=== PATIENT | male | born 1985 | race Caucasian/White ===

== ENCOUNTER 2019-12-28 10:39 | Inpatient (IN) | payer MEDICAID, OTHER ==
[~2019-12-28] VITALS: Ht 154.9 cm; Wt 68.1 kg
[2019-12-28] MEDS ORDERED: SODIUM CHLORIDE 0.9% 1,000 ML IVB ONE (10:55)
[2019-12-28] MEDS ORDERED: levoFLOXacin 500MG 100 ML IV ONE (11:00)
[2019-12-28] MEDS ORDERED: ETOMIDATE (2MG/ML) 20ML VIAL IV ONE ×2 (11:15→11:17)
[2019-12-28] MEDS ORDERED: SUCCINYLCHOLINE CHLORIDE 20 MG/ML 10ML VIAL IV ONE ×2 (11:15→11:18)
[2019-12-28] MEDS ORDERED: ROCURONIUM 10MG/ML 10ML VIAL IV ONE (11:17)
[2019-12-28 12:02] LABS: Basophils # (auto) 0.1 10 ^3/uL (0-0.2); Basophils % (auto) 0.3 % (0.0-2.0); Eosinophils # (auto) 0 10 ^3/uL (0-0.8); Eosinophils % (auto) 0.1 % (0.0-7.0); Hematocrit 45.4 % (41.0-53.0); Hemoglobin 14.8 g/dL (13.5-17.5); Lymphocytes % (auto) 4.7 % (10.0-50.0); Mean Corpuscular Hemoglobin 32.4 pg (28.0-32.0); Mean Corpuscular Hgb Conc. 32.7 g/dL (32.0-36.0); Monocytes # (auto) 2.1 10 ^3/uL (0-1.3); Monocytes % (auto) 9.6 % (0.0-12.0); Neutrophils # (auto) 18.4 10 ^3/uL (1.6-8.6); Neutrophils % (auto) 85.3 % (37.0-80.0); Platelet Count (auto) 231 10^3/uL (140-450); Red Blood Cells 4.59 10^6/uL (4.5-5.90); Red Cell Distribution Width 13.4 % (11.8-14.3); White Blood Cell 21.6 10^3/uL (4.4-10.8)
[2019-12-28 12:21] LABS: Albumin 3.3 g/dL (3.4-5.0); Calcium 10.5 mg/dL (8.5-10.1); Magnesium 3.7 mg/dL (1.6-2.6); Potassium 5.1 mmol/L (3.5-5.1)
[2019-12-28 12:24] LABS: BUN/Creatinine Ratio 14.9; Bilirubin, Total 0.3 mg/dL (0.2-1.0)
[2019-12-28 14:15] VITALS: BP 134/80
[2019-12-28] MEDS ORDERED: NITROGLYCERIN 0.4 MG SL TAB SL PRN (14:15)
[2019-12-28] MEDS ORDERED: MORPHINE SULF INJ 2 MG/ML SYRINGE 1ML IV PRN (14:15)
[2019-12-28] MEDS ORDERED: PIPERACILLIN-TAZOB 3.375GM 100 ML IV ONE (14:15)
[2019-12-28 14:18] VITALS: BP 108/69
[2019-12-28] MEDS: MIDAZOLAM DRIP 50 mg/50mL 50 ML IV SCH ×3 (14:48→22:43)
[2019-12-28] MEDS ORDERED: CHOL100029 PO (14:49)
[2019-12-28] MEDS ORDERED: MIDAZOLAM DRIP 50 mg/50mL 50 ML IV ONE (14:52)
[2019-12-28] MEDS ORDERED: OXCA300T26 PO (14:56)
[2019-12-28] MEDS ORDERED: KEP500T PO (14:56)
[2019-12-28 15:08] LABS: Lactate Dehydrogenase 257 U/L (87-241)
[2019-12-28 15:27] LABS: CRP High Sensitivity > 19.0 mg/dL (< 0.3)
[2019-12-28] MEDS: SODIUM CHLORIDE 0.9% 1,000 ML IV SCH (15:34)
[2019-12-28] MEDS ORDERED: ALBUTEROL SULF 2.5 MG/0.5ML(0.5%) NEB SOLN NEB PRN (15:45)
[2019-12-28] MEDS ORDERED: LACTULOSE 20Gm/30ML SOLN PO PRN (15:45)
[2019-12-28] MEDS: fentaNYL Drip 2500mCg/250mlNS 250 ML IV SCH (16:21)
[2019-12-28] MEDS ORDERED: fentaNYL Drip 2500mCg/250mlNS 250 ML IV ONE (16:31)
[2019-12-28] MEDS: methylPREDNISolone SOD SUCC 40 MG/ML VL IV SCH (17:48)
[2019-12-28] MEDS: FAMOTIDINE (10MG/ML) 2ML VL IV SCH (17:48)
[2019-12-28] MEDS: IPRATROPIUM BROM 0.5 MG/2.5ML INH SOL NEB SCH (17:57)
[2019-12-28] MEDS ORDERED: ACETAMINOPHEN 325 MG RECT SUPP PR ONE (17:57)
[2019-12-28] MEDS: ALBUTEROL SULF 2.5 MG/0.5ML(0.5%) NEB SOLN NEB SCH (17:57)
[2019-12-28] MEDS: NOREPINEPHRINE 8 MG/250ML KIT 250 ML IV SCH (18:00)
[2019-12-28] MEDS ORDERED: NOREPINEPHRINE 8 MG/250ML KIT 250 ML IV ONE (18:06)
[2019-12-28] MEDS ORDERED: HEPARIN SODIUM (PORCINE) 5000 UNITS/ML 1ML VIAL IV ONE (18:45)
[2019-12-28] MEDS ORDERED: ACETAMINOPHEN 650 mg PER 20 mL UD PO ONE (19:00)
[2019-12-28] MEDS: BUDESONIDE (INHALATION) 0.5 MG/2 ML NEB NEB SCH (19:03)
[2019-12-28 19:08] LABS: Hematocrit 40.7 % (41.0-53.0); Hemoglobin 13.4 g/dL (13.5-17.5); Mean Corpuscular Hemoglobin 32.5 pg (28.0-32.0); Mean Corpuscular Hgb Conc. 32.8 g/dL (32.0-36.0); Mean Corpuscular Volume 98.8 fL (80.0-100.0); Platelet Count (auto) 222 10^3/uL (140-450); Red Blood Cells 4.12 10^6/uL (4.5-5.90); Red Cell Distribution Width 13.5 % (11.8-14.3); White Blood Cell 17.6 10^3/uL (4.4-10.8)
[2019-12-28 19:09] LABS: Basophils % (manual) 0 (0.0-2.0); Blast Cells 0; Eosinophils % (manual) 0 (0-7); Myelocytes % 0; Promyelocytes % 0; Reactive Lymphocytes 0
[2019-12-28 19:15] LABS: INR 1.11 (0.9-1.15); Partial Thromboplastin Time 36.1 sec (23.64-32.05)
[2019-12-28 19:37] VITALS: BP 101/71
[2019-12-28 20:06] LABS: Band Neutrophils % (manual) 16; Lymphocytes % (manual) 4 (10.0-50.0); Metamyelocytes % 1; Monocytes % (manual) 9 (0-12)
[2019-12-28] MEDS: HEPARIN DRIP/D5W 100UNITS/ML 250 ML IV SCH (20:33)
[2019-12-28] MEDS: PIPERACILLIN-TAZOB 2.25GM 50 ML IV SCH (20:35)
[2019-12-28] MEDS: LINEZOLID 600MG/300ML 300 ML IV SCH ×2 (20:35→22:00)
[2019-12-28 21:59] VITALS: BP 98/62
[2019-12-28] MEDS ORDERED: BUDESONIDE (INHALATION) 180 MCG IH IN SCH (22:00)
[2019-12-28] MEDS ORDERED: levETIRAcetam 500 MG/5ML INJ IV ONE (22:23)
[2019-12-28] MEDS: OXcarbazepine 300 MG TAB PO SCH (22:26)
[2019-12-28 23:38] LABS: Urine Amorphous Crystal MOD /hpf (None Seen); Urine Bacteria MOD /hpf (None Seen); Urine Blood 2+ /uL (Negative); Urine Specific Gravity 1.012 (1.001-1.035); Urine WBC 115 /hpf (0 - 3); Urine WBC Clumps PRESENT /hpf (None Seen)
[2019-12-29] VITALS (12 sets, daily range): BP systolic 64–156; BP diastolic 55–92
[2019-12-29] MEDS: IPRATROPIUM BROM 0.5 MG/2.5ML INH SOL NEB SCH ×4 (00:21→19:03)
[2019-12-29] MEDS: BUDESONIDE (INHALATION) 0.5 MG/2 ML NEB NEB SCH ×2 (00:21→06:04)
[2019-12-29] MEDS: ALBUTEROL SULF 2.5 MG/0.5ML(0.5%) NEB SOLN NEB SCH ×3 (00:21→14:12)
[2019-12-29] MEDS: PIPERACILLIN-TAZOB 2.25GM 50 ML IV SCH ×4 (01:24→22:19)
[2019-12-29] MEDS: SODIUM CHLORIDE 0.9% 1,000 ML IV SCH ×3 (01:24→22:18)
[2019-12-29] MEDS: MIDAZOLAM DRIP 50 mg/50mL 50 ML IV SCH (02:39)
[2019-12-29 02:51] LABS: Basophils # (auto) 0 10 ^3/uL (0-0.2); Eosinophils # (auto) 0 10 ^3/uL (0-0.8); Hematocrit 37.9 % (41.0-53.0); Hemoglobin 12.4 g/dL (13.5-17.5); Lymphocytes # (auto) 0.7 10 ^3/uL (0.4-5.4); Lymphocytes % (auto) 3.6 % (10.0-50.0); Mean Corpuscular Hemoglobin 32.2 pg (28.0-32.0); Mean Corpuscular Hgb Conc. 32.6 g/dL (32.0-36.0); Mean Corpuscular Volume 98.6 fL (80.0-100.0); Monocytes # (auto) 0.5 10 ^3/uL (0-1.3); Monocytes % (auto) 2.7 % (0.0-12.0); Neutrophils # (auto) 18.9 10 ^3/uL (1.6-8.6); Neutrophils % (auto) 93.7 % (37.0-80.0); Platelet Count (auto) 206 10^3/uL (140-450); Red Blood Cells 3.84 10^6/uL (4.5-5.90); Red Cell Distribution Width 13.4 % (11.8-14.3); White Blood Cell 20.2 10^3/uL (4.4-10.8)
[2019-12-29 03:11] LABS: Albumin 2.4 g/dL (3.4-5.0); BUN/Creatinine Ratio 15.9; Calcium 8.5 mg/dL (8.5-10.1); Potassium 4.3 mmol/L (3.5-5.1)
[2019-12-29 03:14] LABS: Bilirubin, Total 0.3 mg/dL (0.2-1.0); Total Protein 6.5 g/dL (6.4-8.2)
[2019-12-29] MEDS: methylPREDNISolone SOD SUCC 40 MG/ML VL IV SCH ×2 (04:17→16:20)
[2019-12-29 04:59] LABS: INR 1.18 (0.9-1.15)
[2019-12-29 05:00] LABS: Partial Thromboplastin Time > 139.0 sec (23.64-32.05)
[2019-12-29] MEDS: HEPARIN DRIP/D5W 100UNITS/ML 250 ML IV SCH (07:38)
[2019-12-29] MEDS ORDERED: HEPARIN DRIP/D5W 100UNITS/ML 250 ML IV SCH (07:45)
[2019-12-29 09:37] LABS: INR 1.16 (0.9-1.15)
[2019-12-29 09:41] LABS: Partial Thromboplastin Time > 139.0 sec (23.64-32.05)
[2019-12-29] MEDS ORDERED: ASCORBIC ACID 1,000 MG TAB NG SCH (10:00)
[2019-12-29] MEDS ORDERED: CHOLECALCIFEROL (VITD3) 1,000UNIT=25mCg TAB PO SCH (10:00)
[2019-12-29] MEDS ORDERED: levoFLOXacin 500MG 100 ML IV ONE (10:00)
[2019-12-29] MEDS ORDERED: ZINC SULFATE 220mg CAP or TAB NG SCH (10:00)
[2019-12-29] MEDS ORDERED: ENOXAPARIN SOD 40 MG/0.4 ML SYRINGE SC SCH (10:00)
--- NOTE | 2019-12-29 11:16 | NUR ---
WOUND CARE NOTE: Wound care in to see patient per wound care request regarding "pressure wound Right Hip/Thigh area" that are noted present on admission. Patient is 34 years old male with admitting diagnosis of Acute Resp Failure. Patient is resting in hospital bed in ED Rm. #9. Patient is intubated,sedated and mechanically ventilated. Patient appears to be in no pain using Lujan Paulino Faces pain Scale. Patient has cerebral palsy, max assist in turning and repositioning and his Adalberto score is 12. Skin assessment done with the assistance of patient's nurse, OMEGA Jiménez. Noted patient's LRt lateral hip/thigh area has 9.5x14cm dark red/purple non-blanchable area. Patient's mother at bedside reported that patient has had the Rt hip/thigh wound "for about a year" as patient lean more toward his Rt side. Patient's Rt hip/thigh wound is consistent with DTI (Deep Tissue Injury). Photograph of patient's wound are taken for reference. Barbara care given, applied Z Guard cream and covered Rt hip/thigh wound with large Opti foam gentle dressing. Patient also noted with large, swollen scrotum. According to patient's mom, patient has "hydrocele since he's a child and always been like that". Patient tolerated well, repositioned patient for comfort facing his Lt side, redistributed pressure points with pillows and elevated BLE on pillows. OMEGA Jiménez at bedside. RECOMMENDATION: Nursing to continue with BID/PRN cleaning and application of Z Guard cream sacral, buttocks and Rt hip/thigh wound per MD order, Dietary consult, frequent turning and repositioning schedule as condition permits, redistribute pressure points with pillows, air mattress (ordered), frequent barbara care/check, keep clean and dry, elevate heels on pillows, continue monitoring by wound care while patient is hospitalized. Addendum: 12/29/19 at 1439 by Autumn Taveras RN Amended: Links added.
[2019-12-29] MEDS: LINEZOLID 600MG/300ML 300 ML IV SCH ×2 (11:37→22:20)
[2019-12-29] MEDS: OXcarbazepine 300 MG TAB PO SCH ×2 (11:37→22:00)
[2019-12-29] MEDS: DOPamine 1600MCG/ML D5W 250 ML IV SCH (12:26)
--- NOTE | 2019-12-29 13:00 | NUR ---
ICU LOW AIR LOW BED: Called marc for ICU low air loss bed. Per Yanique tran, she will bring one for patient. Addendum: 12/29/19 at 1802 by Autumn Taveras RN 1700 per marc Chanel,no available ICU low air loss bed
[2019-12-29] MEDS: FAMOTIDINE (10MG/ML) 2ML VL IV SCH (16:19)
[2019-12-29] MEDS: fentaNYL Drip 2500mCg/250mlNS 250 ML IV SCH (16:26)
[2019-12-29 16:45] LABS: Protein, Urine 36.5 mg/dL (0.0-11.9)
--- NOTE | 2019-12-29 17:36 | NUR ---
AIR MATTRESS: Air mattress ordered at [facility]. ETA 12/29/19 @ 2331. Reference #[id number]. Please call [facility] at if needed to follow up. Addendum: 12/29/19 at 1737 by Autumn Taveras RN Amended: Links added. Addendum: 12/30/19 at 0935 by Autumn Taveras RN [facility] Air mattress not delivered. Per Simba Chanel ICU Low Air Loss Bed is now available and she will bring one in ED for patient. [facility] bed cancelled.
[2019-12-29] MEDS: NOREPINEPHRINE 8 MG/250ML KIT 250 ML IV SCH (18:00)
--- NOTE | 2019-12-29 21:44 | NUR ---
Respiratory note: DECREASED RR TO 16 PER MD ORDER
[2019-12-29] MEDS: PANTOPRAZOLE 40 MG/10 ML VIAL INJ IV SCH (22:20)
[2019-12-30] VITALS (11 sets, daily range): BP systolic 109–161; BP diastolic 67–91
[2019-12-30] MEDS: ALBUTEROL SULF 2.5 MG/0.5ML(0.5%) NEB SOLN NEB SCH ×5 (00:57→18:10)
[2019-12-30] MEDS: IPRATROPIUM BROM 0.5 MG/2.5ML INH SOL NEB SCH ×5 (00:57→18:10)
[2019-12-30] MEDS: PIPERACILLIN-TAZOB 2.25GM 50 ML IV SCH ×3 (06:00→22:28)
[2019-12-30] MEDS: BUDESONIDE (INHALATION) 0.5 MG/2 ML NEB NEB SCH ×2 (06:09→22:00)
[2019-12-30 06:55] LABS: Albumin 2.4 g/dL (3.4-5.0); Calcium 8.6 mg/dL (8.5-10.1); Potassium 3.8 mmol/L (3.5-5.1)
[2019-12-30 06:58] LABS: BUN/Creatinine Ratio 23.9; Bilirubin, Total 0.2 mg/dL (0.2-1.0); Phosphorus 2.4 mg/dL (2.5-4.90); Total Protein 7.1 g/dL (6.4-8.2)
[2019-12-30] MEDS: SODIUM CHLORIDE 0.9% 1,000 ML IV SCH ×2 (08:06→17:34)
[2019-12-30] MEDS: PANTOPRAZOLE 40 MG/10 ML VIAL INJ IV SCH (09:57)
[2019-12-30] MEDS: OXcarbazepine 300 MG TAB PO SCH ×2 (09:59→21:57)
[2019-12-30] MEDS ORDERED: levoFLOXacin 250MG 50 ML IV SCH (10:00)
[2019-12-30] MEDS: MIDAZOLAM DRIP 50 mg/50mL 50 ML IV SCH ×4 (10:08→23:15)
[2019-12-30] MEDS: LINEZOLID 600MG/300ML 300 ML IV SCH ×2 (10:12→21:58)
[2019-12-30] MEDS: DOPamine 1600MCG/ML D5W 250 ML IV SCH ×2 (10:27→23:16)
[2019-12-30 11:02] LABS: Basophils # (auto) 0 10 ^3/uL (0-0.2); Basophils % (auto) 0.3 % (0.0-2.0); Eosinophils # (auto) 0 10 ^3/uL (0-0.8); Hematocrit 42.9 % (41.0-53.0); Hemoglobin 14.2 g/dL (13.5-17.5); Lymphocytes # (auto) 0.6 10 ^3/uL (0.4-5.4); Lymphocytes % (auto) 4.8 % (10.0-50.0); Mean Corpuscular Hemoglobin 32.4 pg (28.0-32.0); Mean Corpuscular Volume 98.2 fL (80.0-100.0); Monocytes # (auto) 1.3 10 ^3/uL (0-1.3); Monocytes % (auto) 10.1 % (0.0-12.0); Neutrophils # (auto) 10.9 10 ^3/uL (1.6-8.6); Neutrophils % (auto) 84.8 % (37.0-80.0); Platelet Count (auto) 202 10^3/uL (140-450); Red Blood Cells 4.37 10^6/uL (4.5-5.90); Red Cell Distribution Width 13.3 % (11.8-14.3); White Blood Cell 12.9 10^3/uL (4.4-10.8)
--- NOTE | 2019-12-30 15:34 | NUR ---
Consult Consider Osmolite 1.2 at 60 ml/hr if TF is considered for pt per MD approval Consider adding MVI + Vit C 500mg BID for wound healing Est energy needs 4491-2096 kcal (30-35 kcal/kg BW 59kg) Est protein needs 59-71g (1-1.2g/kg BW 59kg) Will reassess prn. Addendum: 12/30/19 at [address] Amended: Links added.
[2019-12-30] MEDS: fentaNYL Drip 2500mCg/250mlNS 250 ML IV SCH ×2 (16:21→21:17)
[2019-12-30] MEDS: NOREPINEPHRINE 8 MG/250ML KIT 250 ML IV SCH (17:24)
[2019-12-31] VITALS (44 sets, daily range): BP systolic 70–143; BP diastolic 40–85
[2019-12-31] MEDS: ALBUTEROL SULF 2.5 MG/0.5ML(0.5%) NEB SOLN NEB SCH ×4 (00:15→18:39)
[2019-12-31] MEDS: IPRATROPIUM BROM 0.5 MG/2.5ML INH SOL NEB SCH ×4 (00:15→18:39)
[2019-12-31] MEDS: SODIUM CHLORIDE 0.9% 1,000 ML IV SCH ×2 (03:35→15:45)
[2019-12-31] MEDS: MIDAZOLAM DRIP 50 mg/50mL 50 ML IV SCH ×2 (04:16→22:03)
[2019-12-31] MEDS: BUDESONIDE (INHALATION) 0.5 MG/2 ML NEB NEB SCH ×2 (05:46→18:40)
[2019-12-31] MEDS: PIPERACILLIN-TAZOB 2.25GM 50 ML IV SCH (06:16)
[2019-12-31] MEDS: OXcarbazepine 300 MG TAB PO SCH ×3 (06:16→22:01)
[2019-12-31 08:07] LABS: Basophils # (auto) 0.1 10 ^3/uL (0-0.2); Basophils % (auto) 0.4 % (0.0-2.0); Eosinophils # (auto) 0 10 ^3/uL (0-0.8); Eosinophils % (auto) 0.3 % (0.0-7.0); Hematocrit 41.8 % (41.0-53.0); Lymphocytes # (auto) 2.1 10 ^3/uL (0.4-5.4); Lymphocytes % (auto) 14.9 % (10.0-50.0); Mean Corpuscular Hemoglobin 32.4 pg (28.0-32.0); Mean Corpuscular Hgb Conc. 33.4 g/dL (32.0-36.0); Mean Corpuscular Volume 96.9 fL (80.0-100.0); Monocytes # (auto) 1.7 10 ^3/uL (0-1.3); Monocytes % (auto) 12.6 % (0.0-12.0); Neutrophils # (auto) 9.9 10 ^3/uL (1.6-8.6); Neutrophils % (auto) 71.8 % (37.0-80.0); Nucleated Red Blood Cells % 0.1 %; Platelet Count (auto) 202 10^3/uL (140-450); Red Blood Cells 4.31 10^6/uL (4.5-5.90); Red Cell Distribution Width 13.6 % (11.8-14.3); White Blood Cell 13.8 10^3/uL (4.4-10.8)
[2019-12-31 08:25] LABS: Calcium 8.4 mg/dL (8.5-10.1); Potassium 3.2 mmol/L (3.5-5.1)
[2019-12-31] MEDS: POTASSIUM CHL 20MEQ/100ML 100 ML IV SCH ×2 (09:30→12:15)
[2019-12-31] MEDS: ENOXAPARIN SOD 30 MG/0.3 ML SYRINGE SC SCH (10:00)
[2019-12-31] MEDS: LINEZOLID 600MG/300ML 300 ML IV SCH ×2 (10:00→22:00)
[2019-12-31] MEDS: PANTOPRAZOLE 40 MG/10 ML VIAL INJ IV SCH (10:00)
[2019-12-31 12:24] LABS: Free T3 2.08 pg/mL (2.3-4.2); Free T4 (Free Thyroxine) 0.67 ng/dL (0.89-1.76)
[2019-12-31] MEDS ORDERED: ACETAMINOPHEN 650 mg PER 20 mL UD ONE (12:24)
[2019-12-31] MEDS: PIPERACILLIN-TAZOB 3.375GM 100 ML IV SCH ×2 (12:30→18:00)
[2019-12-31] MEDS ORDERED: ACETAMINOPHEN 650 mg PER 20 mL UD GT PRN (12:30)
[2019-12-31] MEDS ORDERED: ACETAMINOPHEN 325 MG TAB PO ONE (12:45)
[2019-12-31] MEDS ORDERED: ACETAMINOPHEN 500 MG TAB PO ONE (12:46)
--- NOTE | 2019-12-31 15:20 | NUR ---
PT WAS TRANSPORTED TO BUS ESCORT BED 5 WITHOUT INCIDENT. PT ON CARDIAC AND BP MONITOR. OMEGA SUMMERS AND CORONA ESPINO AT BEDSIDE. PT TOLERATED WELL. ETT REMAINS TO SAME POSITION AND MARKING. WILL CONTINUE TO MONITOR PT.
--- NOTE | 2019-12-31 15:45 | NUR ---
recieved pt from ER to label designer holding area. intubated and sedated on versed gtt at 10mg/hr, fentanyl gtt 150mcg/ hr. Blanca 3mm, Et tube at 24 to inner lip.vent settings TV 400, rate 18, fio2 100%, PEEp at 5. sating 96%. lung sounds diminished to lower quadrants. Ng tube at 53. residual of 30mls. right buttocks drsg with underlying skin red and blanchable. small BM smear produced when turning. light brown/liquid. contractures to bilat hands d/t cerebral palsy. responds to touch.
[2019-12-31] MEDS ORDERED: PHENYLEPHRINE IV 250 ML IV ONE (16:53)
[2019-12-31] MEDS ORDERED: SODIUM CHLORIDE 0.9% 1,000 ML IV ONE (17:00)
[2019-12-31] MEDS: PHENYLEPHRINE IV 250 ML IV SCH (17:12)
--- NOTE | 2019-12-31 17:50 | NUR ---
FAMILY PT'S MOTHER HERE IN THE ICU WAITING ROOM. SPOKE WITH HER TO PROVIDE AN UPDATE ON THE PT'S CURRENT STATUS AND POC. SHE PROVIDED ME WITH HER NAME AND CONTACT INFORMATION AND I TOLD HER WE WILL CONTACT HER FOR ANY CHANGE IN HIS CONDITION.
[2019-12-31] MEDS ORDERED: ACETAMINOPHEN 325 MG TAB PO PRN (18:00)
--- NOTE | 2019-12-31 19:48 | NUR ---
shift report given to LOU RN. pt stable. remains vented and sedated. transfer services to LOU chicas
--- NOTE | 2019-12-31 19:55 | NUR ---
admission assessment unable to complete. pt vented and sedated. pt has been in ER since the 27 of December
--- NOTE | 2019-12-31 20:10 | NUR ---
Respiratory note: TRANSPORTED PT TO CT WITHOUT INCIDENT W/ OMEGA Rivera
--- NOTE | 2019-12-31 20:28 | NUR ---
Respiratory note: BACK FROM CT.
--- NOTE | 2019-12-31 20:32 | NUR ---
Respiratory note: VENT CHECK DONE AT THIS TIME. PLACED PT BACK ON PREVIOUS VENT SETTINGS. PT BACK ON VENT V15, VENT CONNECTED TO RED OUTLET AND O2 SOURCE, ALARMS ARE SET AND AUDIBLE. BS ARE COURSE SXD VIA ETT FOR SMALL TO MODERATE THICK FAJARDO/W BLOOD TINGE. RN AWARE RT CAN BE PAGED AT ANY TIME.
[2020-01-01] VITALS (106 sets, daily range): BP systolic 84–120; BP diastolic 48–87
--- NOTE | 2020-01-01 | NUR ---
Patient turned, pillows to back side, repositioned in bed, no signs of acute distress noted, continue to monitor.
[2020-01-01] MEDS: IPRATROPIUM BROM 0.5 MG/2.5ML INH SOL NEB SCH ×4 (00:23→18:55)
[2020-01-01] MEDS: ALBUTEROL SULF 2.5 MG/0.5ML(0.5%) NEB SOLN NEB SCH ×4 (00:23→18:55)
[2020-01-01] MEDS: SODIUM CHLORIDE 0.9% 1,000 ML IV SCH ×4 (00:36→20:53)
[2020-01-01] MEDS: PIPERACILLIN-TAZOB 3.375GM 100 ML IV SCH ×5 (00:37→23:48)
[2020-01-01] MEDS: PHENYLEPHRINE IV 250 ML IV SCH ×3 (01:37→17:44)
--- NOTE | 2020-01-01 03:30 | NUR ---
Labs collected and sent up to lab
[2020-01-01 04:21] LABS: Basophils # (auto) 0 10 ^3/uL (0-0.2); Basophils % (auto) 0.3 % (0.0-2.0); Eosinophils # (auto) 0.2 10 ^3/uL (0-0.8); Eosinophils % (auto) 1.9 % (0.0-7.0); Hemoglobin 12.5 g/dL (13.5-17.5); Lymphocytes # (auto) 1.8 10 ^3/uL (0.4-5.4); Lymphocytes % (auto) 18.7 % (10.0-50.0); Mean Corpuscular Hemoglobin 33.2 pg (28.0-32.0); Mean Corpuscular Hgb Conc. 33.9 g/dL (32.0-36.0); Mean Corpuscular Volume 97.9 fL (80.0-100.0); Monocytes # (auto) 1.4 10 ^3/uL (0-1.3); Monocytes % (auto) 14.3 % (0.0-12.0); Neutrophils # (auto) 6.2 10 ^3/uL (1.6-8.6); Neutrophils % (auto) 64.8 % (37.0-80.0); Nucleated Red Blood Cells % 0.1 %; Platelet Count (auto) 213 10^3/uL (140-450); Red Blood Cells 3.78 10^6/uL (4.5-5.90); Red Cell Distribution Width 13.6 % (11.8-14.3); White Blood Cell 9.6 10^3/uL (4.4-10.8)
[2020-01-01] MEDS: fentaNYL Drip 2500mCg/250mlNS 250 ML IV SCH ×2 (04:24→20:52)
[2020-01-01] MEDS: MIDAZOLAM DRIP 50 mg/50mL 50 ML IV SCH ×2 (04:26→17:18)
[2020-01-01 04:31] LABS: Calcium 7.9 mg/dL (8.5-10.1); Potassium 3.1 mmol/L (3.5-5.1)
[2020-01-01 04:34] LABS: BUN/Creatinine Ratio 18.5; Bilirubin, Total 0.5 mg/dL (0.2-1.0); Total Protein 5.8 g/dL (6.4-8.2)
--- NOTE | 2020-01-01 04:47 | NUR ---
STEPHANIE Kirk paged for potassium coverage of 3.1 this AM. Awaiting new orders
[2020-01-01] MEDS: OXcarbazepine 300 MG TAB PO SCH ×4 (06:02→21:58)
[2020-01-01] MEDS: BUDESONIDE (INHALATION) 0.5 MG/2 ML NEB NEB SCH ×2 (06:36→18:55)
--- NOTE | 2020-01-01 06:43 | NUR ---
Respiratory note: RECEIVED PATIENT ON V15 ESPRIT VENT ORALLY INTUBATED WITH A 7.5 ETT SECURED VIA KARRI AT THE 24CM MARKING AT THE LIP, AND MECHANICALLY VENTILATED WITH THE CHARTED SETTINGS. SPO2 90%, LUNG SOUNDS DIM T/O, SMALL AMOUNT OF FAJARDO SECRETIONS WHEN SUCTIONED. SKIN IS WARM/DRY TO THE TOUCH AND IS INTACT NEAR KARRI SITE. THERE IS AN OGT IN PLACE AND SECURED TO THE ETT, A TRIPLE LUMEN CENTRAL LINE IS PLACED IN THE RIGHT IJ, NO EDEMA NOTED. AM CXR ASSESSED AND IT SHOWS ETT IN SATISFACTORY POSITION SITTING APPROX 3.8CM ABOVE THE CALVIN; NO INDICATION TO ADJUST TUBE AT THIS TIME. PATIENT IS UNRESPONSIVE TO BOTH VERBAL/TACTILE STIMULI AND IS SEDATED ON VERSED AND FENTANYL DRIPS. HE IS RESTING COMFORTABLY AND TOLERATING VENT WELL, NO CHANGES MADE. VENT PLUGGED INTO RED OUTLET AND ALL ALARMS ARE SET AND AUDIBLE. WILL CONTINUE TO ASSESS PATIENT WELL VENTILATOR FUNCTION. Lala-BackType RUN INLINE.
--- NOTE | 2020-01-01 06:44 | NUR ---
New Order: Potassium 20MEQ IV infusion, one time order, order repeated back and confirmed.
[2020-01-01] MEDS ORDERED: POTASSIUM CHL 20MEQ/100ML 100 ML IV ONE (06:47)
--- NOTE | 2020-01-01 07:00 | NUR ---
Potassium infusion started, lined connected to Central line.
--- NOTE | 2020-01-01 07:10 | NUR ---
Closing note; Report given to Jonathon Heart RN, care endorsed.
--- NOTE | 2020-01-01 07:30 | NUR ---
Received pt from james rn. pt remains sedated and intubated. perrla sluggish. NG tube placement checked. responds to touch. vent settings ac ppep 5, tv 400, rate 18, fio2 85%. pt has cerrbral palsy. legs stiff/contracted. stomach round and firm, rigid to rlq. absent bowel sounds. ng residual of 30ml.
[2020-01-01] MEDS: PANTOPRAZOLE 40 MG/10 ML VIAL INJ IV SCH (10:29)
[2020-01-01] MEDS: ENOXAPARIN SOD 30 MG/0.3 ML SYRINGE SC SCH (11:00)
[2020-01-01] MEDS: LINEZOLID 600MG/300ML 300 ML IV SCH ×2 (11:02→21:54)
--- NOTE | 2020-01-01 12:35 | NUR ---
belinda santiago both called with new orders. updated them on status of patient
[2020-01-01] MEDS ORDERED: SODIUM CHLORIDE 0.9% 1,000 ML IV ONE (13:00)
[2020-01-01] MEDS: POTASSIUM CHL 20MEQ/100ML 100 ML IV SCH ×2 (13:45→16:04)
--- NOTE | 2020-01-01 14:56 | NUR ---
Nutrition Followup Notes Wt: 77.2 kg Pt`s intubated sedated with no family by beside. pt is currently NPO with no new diet orders Est energy needs 6805-5494 kcal (30-35 kcal/kg BW 59kg) Est protein needs 59-71g (1-1.2g/kg BW 59kg) Will reassess prn. LABS: CA 7.9 L, ALB 2.0 L GI: Pt has no BM reported per RN doc BS: 10 high risk. Refer to wound assessment report for full details. PES: Inadequate oral intake aeb pt with NPO diet order r/t current medical condition, intubated Comments Will continue to closely monitor pertinent labs, PO intake, skin status and weight trends. Will f/u in 2-3 days Rec: 1) Consider Osmolite 1.2 @ 60 ml/hr if TF is considered for pt and GI is accessible. 2) Consider adding MVI and Vit C BID for wound healing. 3) advance diet as medically feasible. 4) consider prostat 1 packet bid. 5) continue current plan of care
--- NOTE | 2020-01-01 15:30 | NUR ---
SHIFT REPORT GIVEN TO ONCOMING RN
[2020-01-01] MEDS ORDERED: FLEET ENEMA(ADULT) 135 ML PR ONE ×2 (15:39→15:45)
--- NOTE | 2020-01-01 16:13 | NUR ---
Respiratory note: PEEP INCREASED TO [address] ZULETA'S BEDSIDE ORDER. RN JOPHY AT BEDSIDE AND AWARE OF CHANGE.
--- NOTE | 2020-01-01 16:15 | NUR ---
FLEET ENEMA FLEET ENEMA GIVEN. NO BOWEL MOVEMENTS.
--- NOTE | 2020-01-01 18:15 | NUR ---
SOAP CARL ENEMA GIVEN.
--- NOTE | 2020-01-01 22:15 | NUR ---
Special mattress/ Patient bathe/linen change Patient given complete bath. Skin integrity assessed for any changes. Linens changed. Patient transferred to [facility]
[2020-01-02] VITALS (105 sets, daily range): BP systolic 76–134; BP diastolic 49–98
--- NOTE | 2020-01-02 | NUR ---
IV removal LT.FA IV DC'd with sterile technique, catheter fully intact. Pressure dressing applied to site. Patient tolerated procedure well.
[2020-01-02] MEDS: ALBUTEROL SULF 2.5 MG/0.5ML(0.5%) NEB SOLN NEB SCH ×4 (00:27→18:16)
[2020-01-02] MEDS: IPRATROPIUM BROM 0.5 MG/2.5ML INH SOL NEB SCH ×4 (00:27→18:16)
[2020-01-02] MEDS: MIDAZOLAM DRIP 50 mg/50mL 50 ML IV SCH ×5 (02:03→23:01)
[2020-01-02] MEDS: PHENYLEPHRINE IV 250 ML IV SCH ×4 (02:17→20:54)
[2020-01-02] MEDS: SODIUM CHLORIDE 0.9% 1,000 ML IV SCH ×2 (03:17→13:39)
[2020-01-02] MEDS: PIPERACILLIN-TAZOB 3.375GM 100 ML IV SCH ×3 (05:32→17:43)
[2020-01-02] MEDS: OXcarbazepine 300 MG TAB PO SCH ×4 (05:36→23:20)
[2020-01-02 06:09] LABS: Basophils # (auto) 0.1 10 ^3/uL (0-0.2); Basophils % (auto) 0.6 % (0.0-2.0); Eosinophils # (auto) 0.3 10 ^3/uL (0-0.8); Eosinophils % (auto) 2.3 % (0.0-7.0); Hematocrit 39.2 % (41.0-53.0); Hemoglobin 12.8 g/dL (13.5-17.5); Lymphocytes # (auto) 1.7 10 ^3/uL (0.4-5.4); Lymphocytes % (auto) 12.5 % (10.0-50.0); Mean Corpuscular Hemoglobin 32.2 pg (28.0-32.0); Mean Corpuscular Hgb Conc. 32.6 g/dL (32.0-36.0); Mean Corpuscular Volume 98.8 fL (80.0-100.0); Monocytes # (auto) 1.3 10 ^3/uL (0-1.3); Monocytes % (auto) 9.3 % (0.0-12.0); Neutrophils # (auto) 10.2 10 ^3/uL (1.6-8.6); Neutrophils % (auto) 75.3 % (37.0-80.0); Nucleated Red Blood Cells % 0.1 %; Platelet Count (auto) 227 10^3/uL (140-450); Red Blood Cells 3.96 10^6/uL (4.5-5.90); Red Cell Distribution Width 14.1 % (11.8-14.3); White Blood Cell 13.6 10^3/uL (4.4-10.8)
[2020-01-02] MEDS: BUDESONIDE (INHALATION) 0.5 MG/2 ML NEB NEB SCH ×2 (06:12→18:16)
[2020-01-02 06:28] LABS: Calcium 7.9 mg/dL (8.5-10.1); Potassium 3.6 mmol/L (3.5-5.1)
[2020-01-02 06:30] LABS: BUN/Creatinine Ratio 10.5
[2020-01-02] MEDS ORDERED: ACETAMINOPHEN 650 mg PER 20 mL UD ONE (08:03)
[2020-01-02] MEDS: ACETAMINOPHEN 650 mg PER 20 mL UD GT PRN (08:15)
[2020-01-02] MEDS: LINEZOLID 600MG/300ML 300 ML IV SCH (10:20)
[2020-01-02] MEDS: ENOXAPARIN SOD 30 MG/0.3 ML SYRINGE SC SCH (10:38)
[2020-01-02] MEDS: PANTOPRAZOLE 40 MG/10 ML VIAL INJ IV SCH (10:38)
--- NOTE | 2020-01-02 12:34 | NUR ---
REPORT GIVEN TO FREDERICK. PLAN TO TRANSFER TO 102 IN ICU. MOTHER CALLED ABOUT THE TRANSFER. UPDATED ON CONDITION
--- NOTE | 2020-01-02 12:40 | NUR ---
DR. ZULETA AT BEDSIDE, UPDATED ON PT STATUS. NEW ORDERS RECEIVED. INCREASED PEEP +12. PT TOLERATING CHANGES, SPO2 91%. NOTIFIED RN OF CHANGES.
--- NOTE | 2020-01-02 12:41 | NUR ---
DR. ZULETA IN. UPDATED ON CONDITION. ORDERS REC'D.
--- NOTE | 2020-01-02 12:45 | NUR ---
TRANSFERRED TO 102 WITH RT X2.
--- NOTE | 2020-01-02 12:50 | NUR ---
RT Transport Note: Patient transported to ICU 102 with RN. Patient transported on still operator with alarms set and audible, ambu-bag/mask connected to O2 tank. Placed pt back on ventilator with previous settings. Transport completed without incident.
--- NOTE | 2020-01-02 12:55 | NUR ---
Opening Shift Note Assumed care of patient, intubated and sedated. No S/S of distress/SOB or pain. See interventions for complete assessment. Bed locked on low position,padded side rails up x2, bed alarms on at all times, will continue to monitor for changes Q1hr and PRN.
[2020-01-02] MEDS ORDERED: GOLYTELY 4L KIT PO ONE (13:00)
[2020-01-02] MEDS: fentaNYL Drip 2500mCg/250mlNS 250 ML IV SCH (13:16)
--- NOTE | 2020-01-02 14:10 | NUR ---
Titrated FIO2 down to 90%, SPO2 93%. Notified RN of changes.
--- NOTE | 2020-01-02 14:52 | NUR ---
Awaiting Gordon Stallworth from Pharmacy, spoke to Regine.
--- NOTE | 2020-01-02 16:00 | NUR ---
Received call from patient's mother Monica who's able to provide password. Updated on patient's status and POC, verbalized understanding. All questions and concerns addressed.
--- NOTE | 2020-01-02 16:34 | NUR ---
Followed - up Go litely from pharmacy, spoke to Regine.
--- NOTE | 2020-01-02 17:00 | NUR ---
Patient given 200ml Go litely via OGT, patient tolerated well.
--- NOTE | 2020-01-02 18:16 | NUR ---
RT NOTE RECEIVED PT INTUBATED AND ON VENT V15 ON STATED SETTINGS WITH HEATED WIRE CIRCUIT. VENT IS PLUGGED TO RED OUTLET. ALARMS ARE ON AND AUDIBLE TO NURSING. AMBU BAG AT BEDSIDE AND CONNECTED TO O2 SOURCE. 7.5 ETT IS SECURED WITH ANCHORFAST WITH BITE BLOCK AT 24CM TO THE ORAL RIGHT AND MOVED TO THE LEFT. PT WAS SUCTIONED FOR SMALL RETURN FROM ETT AND LARGE ORALLY. BS ARE CTA. FIO2 TITRATED TO 85%, RN VICTORIA NOTIFIED. CIRCUIT TEMP 34.0, POX 96%
--- NOTE | 2020-01-02 18:28 | NUR ---
RT NOTE MEDNEB GIVEN INLINE WITH 2.5 ,G ALBUTEROL, 0.5 MG ATROVENT AND 0.5 MG PULMICORT WITHOUT ADVERSE REACTION NOTED.
--- NOTE | 2020-01-02 18:35 | NUR ---
KUB xray done at bedside.
--- NOTE | 2020-01-02 18:40 | NUR ---
Gave another 200 ml Go litely via OGT, patient tolerated well.
--- NOTE | 2020-01-02 18:45 | NUR ---
Dr Hankins at bedside, updated on patient's status. Patient seen and examined. Will carry out new orders.
--- NOTE | 2020-01-02 20:02 | NUR ---
PEG TUBE PEG TUBE INSERTION SITE - REDNESS NOTED SITE CLEANED
--- NOTE | 2020-01-02 20:02 | NUR ---
RT NOTE ROUTINE VENT CHECK DONE. PT INTUBATED AND ON VENT V15 ON STATED SETTINGS WITH HEATED WIRE CIRCUIT. VENT IS PLUGGED TO RED OUTLET. ALARMS ARE ON AND AUDIBLE TO NURSING. AMBU BAG AT BEDSIDE AND CONNECTED TO O2 SOURCE. 7.5 ETT IS SECURED WITH ANCHORFAST WITH BITE BLOCK AT 24CM TO THE LEFT. PT IS GETTING CLEANED UP BY RN. CIRCUIT TEMP 34.0, POX 93% Addendum: 01/02/20 at 2021 by Coral San RT Amended: Links added.
--- NOTE | 2020-01-02 20:10 | NUR ---
GOLYTELY NOT GIVEN REMAINING GOLYTELY NOT GIVEN ASPIRATED 120MLS FROM OGT AND ABDOMEN DISTENDED PATIENT JUST HAD BM MODERATE AMOUNT LOOSE BROWNISH STOOL
--- NOTE | 2020-01-02 22:06 | NUR ---
RT NOTE ROUTINE VENT CHECK DONE. PT INTUBATED AND ON VENT V15 ON STATED SETTINGS WITH HEATED WIRE CIRCUIT. VENT IS PLUGGED TO RED OUTLET. ALARMS ARE ON AND AUDIBLE TO NURSING. AMBU BAG AT BEDSIDE AND CONNECTED TO O2 SOURCE. 7.5 ETT IS SECURED WITH ANCHORFAST WITH BITE BLOCK AT 24CM TO THE LEFT. FOI2 TITRATED TO 80%. OMEGA KESSLER NOTIFIED. CIRCUIT TEMP 34.0, POX 95% Addendum: 01/02/20 at 2209 by Coral San RT Amended: Links added.
[2020-01-02] MEDS: CEFEPIME 2 GM in SODIUM CHL 0.9% 50 ML IV SCH (23:14)
[2020-01-03] VITALS (100 sets, daily range): BP systolic 77–123; BP diastolic 33–76
--- NOTE | 2020-01-03 | NUR ---
RT NOTE ROUTINE VENT CHECK DONE. PT INTUBATED AND ON VENT V15 ON STATED SETTINGS WITH HEATED WIRE CIRCUIT. VENT IS PLUGGED TO RED OUTLET. ALARMS ARE ON AND AUDIBLE TO NURSING. AMBU BAG AT BEDSIDE AND CONNECTED TO O2 SOURCE. 7.5 ETT IS SECURED WITH ANCHORFAST WITH BITE BLOCK AT 24CM TO THE LEFT. FI02 TITRATED TO 70%. OMEGA KESSLER NOTIFIED. PT WAS SUCTIONED FOR SCANT RETURN. HHN GIVEN INLINE WITH 2.5 MG ALBUTEROL AND 0.5 MG ATROVENT WITHOUT ADVERSE REACTION NOTED. CIRCUIT TEMP 34.0 WATER LEVEL IS ADEQUATE, POX 95% Addendum: 01/03/20 at 0035 by Coral San RT Amended: Links added.
[2020-01-03] MEDS: IPRATROPIUM BROM 0.5 MG/2.5ML INH SOL NEB SCH ×4 (00:25→19:28)
[2020-01-03] MEDS: ALBUTEROL SULF 2.5 MG/0.5ML(0.5%) NEB SOLN NEB SCH ×4 (00:25→19:28)
--- NOTE | 2020-01-03 01:20 | NUR ---
ELIMINATION PATIENT HAD LARGE AMOUNT OF LOOSE BROWNISH STOOL CLEANED PATIENT. PARTIAL LINEN CHANGE DONE Z GUARD CREAM APPLIED ON PERIANAL AREA OPTIFOAM ON RIGHT HIP CHANGED BECAUSE ITS SOILED WITH STOOL
--- NOTE | 2020-01-03 01:57 | NUR ---
RT NOTE ROUTINE VENT CHECK DONE. PT INTUBATED AND ON VENT V15 ON STATED SETTINGS WITH HEATED WIRE CIRCUIT. VENT IS PLUGGED TO RED OUTLET. ALARMS ARE ON AND AUDIBLE TO NURSING. AMBU BAG AT BEDSIDE AND CONNECTED TO O2 SOURCE. 7.5 ETT IS SECURED WITH ANCHORFAST WITH BITE BLOCK AT 24CM TO THE LEFT. FI02 TITRATED TO 80%. OMEGA KESSLER NOTIFIED. PT WAS SUCTIONED FOR SCANT RETURN. CIRCUIT TEMP 34.0 WATER LEVEL IS ADEQUATE, POX 91% Addendum: 01/03/20 at 0213 by Coral San RT Amended: Links added.
[2020-01-03] MEDS: SODIUM CHLORIDE 0.9% 1,000 ML IV SCH (03:30)
[2020-01-03] MEDS: PHENYLEPHRINE IV 250 ML IV SCH ×5 (03:30→22:37)
[2020-01-03] MEDS: fentaNYL Drip 2500mCg/250mlNS 250 ML IV SCH ×2 (03:35→14:21)
--- NOTE | 2020-01-03 03:59 | NUR ---
RT NOTE ROUTINE VENT CHECK DONE. PT INTUBATED AND ON VENT V15 ON STATED SETTINGS WITH HEATED WIRE CIRCUIT. VENT IS PLUGGED TO RED OUTLET. ALARMS ARE ON AND AUDIBLE TO NURSING. AMBU BAG AT BEDSIDE AND CONNECTED TO O2 SOURCE. 7.5 ETT IS SECURED WITH ANCHORFAST WITH BITE BLOCK AT 24CM TO THE LEFT. FI02 TITRATED TO 90%. OMEGA KESSLER NOTIFIED. PT WAS SUCTIONED FOR SCANT RETURN. CIRCUIT TEMP 34.1 WATER LEVEL IS ADEQUATE, POX 91% Addendum: 01/03/20 at 0409 by Coral San RT Amended: Links added.
--- NOTE | 2020-01-03 04:18 | NUR ---
DESATURATION PATIENT EASILY DESATS TO LOW 85% WHEN AWAKE OR STIMULATED SEDATION INCREASED - SEE IV SPREADSHEET RT INCREASED FIO2 TO 90%
[2020-01-03 04:38] LABS: Basophils # (auto) 0.1 10 ^3/uL (0-0.2); Basophils % (auto) 0.9 % (0.0-2.0); Eosinophils # (auto) 0.5 10 ^3/uL (0-0.8); Eosinophils % (auto) 4.1 % (0.0-7.0); Hematocrit 39.4 % (41.0-53.0); Hemoglobin 12.6 g/dL (13.5-17.5); Lymphocytes # (auto) 1.5 10 ^3/uL (0.4-5.4); Lymphocytes % (auto) 13.4 % (10.0-50.0); Mean Corpuscular Hemoglobin 31.8 pg (28.0-32.0); Mean Corpuscular Hgb Conc. 32.1 g/dL (32.0-36.0); Mean Corpuscular Volume 98.9 fL (80.0-100.0); Monocytes # (auto) 1.4 10 ^3/uL (0-1.3); Monocytes % (auto) 11.9 % (0.0-12.0); Neutrophils # (auto) 8.1 10 ^3/uL (1.6-8.6); Neutrophils % (auto) 69.7 % (37.0-80.0); Platelet Count (auto) 253 10^3/uL (140-450); Red Blood Cells 3.98 10^6/uL (4.5-5.90); Red Cell Distribution Width 14.3 % (11.8-14.3); White Blood Cell 11.5 10^3/uL (4.4-10.8)
[2020-01-03] MEDS: MIDAZOLAM DRIP 50 mg/50mL 50 ML IV SCH ×4 (04:38→22:40)
[2020-01-03 05:00] LABS: BUN/Creatinine Ratio 10.9; Potassium 3.1 mmol/L (3.5-5.1)
--- NOTE | 2020-01-03 05:59 | NUR ---
OZ NIÑO PATIENT'S POTASSIUM 3.1 MMOL OZ NIÑO LEFT VOICEMAIL FOR DR. GIBSON
[2020-01-03] MEDS: BUDESONIDE (INHALATION) 0.5 MG/2 ML NEB NEB SCH ×2 (06:18→19:29)
--- NOTE | 2020-01-03 07:10 | NUR ---
REPORT REPORT GIVEN TO OMEGA MONDRAGON
[2020-01-03] MEDS: OXcarbazepine 300 MG TAB PO SCH ×5 (07:22→22:43)
[2020-01-03] MEDS: PANTOPRAZOLE 40 MG/10 ML VIAL INJ IV SCH (08:19)
[2020-01-03] MEDS: ENOXAPARIN SOD 30 MG/0.3 ML SYRINGE SC SCH (08:19)
[2020-01-03] MEDS: levoFLOXacin 500MG 100 ML IV SCH (08:20)
--- NOTE | 2020-01-03 09:53 | NUR ---
assessment Patient is a 34 year old male who is on a vent. Per patients mother Monica patient has cerebral palsey, and mental retardation. Patients PCP is Dr Robb and his specialist are at [facility]. Patient has a wheelchair, home oxygen at 2L/min, nebulizer, suction, hospital bed and shaw and a shower chair. Monica is patients primary caregiver. Patients sister Molly also provides caregiving when needed. I informed Monica that patients post discharge needs to be determined after extubation and prior to discharge. I will continue to monitor and follow up as appropriate. Monica verbalized understanding. Addendum: 01/03/20 at 0958 by Abimbola CONTRERAS Amended: Links added.
--- NOTE | 2020-01-03 09:55 | NUR ---
Family updated on pt status Family of ALYSSAGA updated on patient's status and condition. All questions and concerns addressed. Mother, Monica verbalized understanding.
--- NOTE | 2020-01-03 10:00 | NUR ---
Md at bedside Police Liaison updated on patients status. New orders in place.
--- NOTE | 2020-01-03 10:00 | NUR ---
Elimination Patient had a moderate, brown, loose stool. Skin cleansed. Zguard applied. Patient repositioned to side to off load pressure. Will continue to reposition at least every 2 hrs.
[2020-01-03] MEDS ORDERED: BUMETANIDE 2.5mg/10ml (0.25 mg/ml) INJ IV ONE (10:45)
[2020-01-03] MEDS: CEFEPIME 2 GM in SODIUM CHL 0.9% 50 ML IV SCH ×2 (11:05→22:00)
[2020-01-03] MEDS: POTASSIUM CHL 20MEQ/100ML 100 ML IV SCH ×3 (11:14→14:59)
--- NOTE | 2020-01-03 12:30 | NUR ---
ELIMINATION PATIENT HAD A MODERATE, BROWN LOOSE STOOL. SKIN CLEANSED. ZGAURD APPLIED PREVENATIVE. OPTIFOAM TO RIGHT HIP CDI. PATIENT TURNED TO OFF LOAD PRESSURE FROM SACRUM WITH MULTIPLE PILLOWS. HEELS AND ELBOWS ALSO OFFLOADED.
--- NOTE | 2020-01-03 14:52 | NUR ---
Nutrition Followup Notes Wt: 86.6 kg Pt`s intubated sedated with no family by beside. pt is currently NPO since 12/30 with a PEG Tube, no new diet orders. Suggest EN nutrition support be initiated. Refer to recommendations noted below under Comments. Est energy needs 0337-7187 kcal (30-35 kcal/kg BW 59kg) Est protein needs 59-71g (1-1.2g/kg BW 59kg) Will reassess prn. LABS: CA 8.0 L, ALB 2.0 L GI: Pt had 2 BM on 01/02 per RN doc BS: 10 high risk. Refer to wound assessment report for full details. PES: Inadequate oral intake aeb pt with NPO diet order r/t current medical condition, intubated Comments Will continue to closely monitor pertinent labs, PO intake, skin status and weight trends. Will f/u in 2-3 days Rec: 1) Consider Osmolite 1.2 @ 60 ml/hr if TF is considered for pt and GI is accessible. 2) Consider adding MVI and Vit C BID for wound healing. 3) advance diet as medically feasible. 4) consider prostat 1 packet bid. 5) continue current plan of care
--- NOTE | 2020-01-03 15:19 | NUR ---
Gtube site Tissue surrounding G tube site noted to be moist, pink with some creamy discharge. Site cleansed with chlorahexadine swab and 4x4 gauze placed surrounding site. Md to be notified.
--- NOTE | 2020-01-03 16:53 | NUR ---
MD AT BEDSIDE DR. Yehuda AVILEZ UPDATED ON PATIENTS STATUS. NEW ORDERS IN PLACE TO CANCEL UROLOGY CONSULT AT THIS TIME DUE TO PERTINENT HX. FEEDINGS TO POSSIBLY BE RESTARTED IN A.M. PER MD CULTURE OF G TUBE SITE AT THIS TIME. SEE MD ORDERS.
--- NOTE | 2020-01-03 17:35 | NUR ---
HYPOTENSION, TACHYPNEA COMPLETE BED LINEN CHANGED SEROUS FLUID IS NOTED TO LEAK FROM BILATERAL EDEMATOUS TESTICLES AND PATIENT HAD A SMALL LIQUID BROWN STOOL. POST BED CHANGE PATIENTS RR NOTED UNSYNCHRONIZED WITH VENTILATOR PATIENT WAS "STACKING" BREATHS AND RR NOTED MID 30'S. BP DECREASED TO 83/47. PRESSOR INCREASED. SEDATION INCREASED FOR SYNCHRONY OF VENT. WILL CONTINUE TO MONITOR.
--- NOTE | 2020-01-03 18:39 | NUR ---
Family updated on pt status Family of GA SHAH updated on patient's status and condition. All questions and concerns addressed. Monica Hutchison verbalized understanding.
[2020-01-03] MEDS: ACETAMINOPHEN 650 mg PER 20 mL UD GT PRN (20:22)
[2020-01-04] VITALS (100 sets, daily range): BP systolic 78–123; BP diastolic 40–88
[2020-01-04] MEDS: IPRATROPIUM BROM 0.5 MG/2.5ML INH SOL NEB SCH ×4 (00:17→18:24)
[2020-01-04] MEDS: ALBUTEROL SULF 2.5 MG/0.5ML(0.5%) NEB SOLN NEB SCH ×4 (00:17→18:24)
[2020-01-04] MEDS: fentaNYL Drip 2500mCg/250mlNS 250 ML IV SCH (01:16)
[2020-01-04] MEDS: PHENYLEPHRINE IV 250 ML IV SCH ×2 (01:18→04:44)
[2020-01-04] MEDS: MIDAZOLAM DRIP 50 mg/50mL 50 ML IV SCH ×2 (01:20→12:08)
[2020-01-04 04:40] LABS: Basophils # (auto) 0.1 10 ^3/uL (0-0.2); Basophils % (auto) 0.8 % (0.0-2.0); Eosinophils # (auto) 0.5 10 ^3/uL (0-0.8); Eosinophils % (auto) 4.6 % (0.0-7.0); Hematocrit 35.2 % (41.0-53.0); Hemoglobin 11.5 g/dL (13.5-17.5); Lymphocytes # (auto) 1.6 10 ^3/uL (0.4-5.4); Lymphocytes % (auto) 15.2 % (10.0-50.0); Mean Corpuscular Hemoglobin 32.1 pg (28.0-32.0); Mean Corpuscular Hgb Conc. 32.6 g/dL (32.0-36.0); Mean Corpuscular Volume 98.4 fL (80.0-100.0); Monocytes # (auto) 1.6 10 ^3/uL (0-1.3); Neutrophils # (auto) 6.7 10 ^3/uL (1.6-8.6); Neutrophils % (auto) 64.4 % (37.0-80.0); Nucleated Red Blood Cells % 0.1 %; Platelet Count (auto) 307 10^3/uL (140-450); Red Blood Cells 3.57 10^6/uL (4.5-5.90); Red Cell Distribution Width 13.7 % (11.8-14.3); White Blood Cell 10.4 10^3/uL (4.4-10.8)
[2020-01-04 04:59] LABS: Calcium 8.3 mg/dL (8.5-10.1); Potassium 3.7 mmol/L (3.5-5.1)
[2020-01-04 05:01] LABS: BUN/Creatinine Ratio 9.6
[2020-01-04] MEDS: OXcarbazepine 300 MG TAB PO SCH ×4 (05:35→22:29)
[2020-01-04] MEDS: BUDESONIDE (INHALATION) 0.5 MG/2 ML NEB NEB SCH ×2 (05:58→18:24)
--- NOTE | 2020-01-04 07:30 | NUR ---
INITIAL ASSESSMENT COMPLETED. SEE FLOW SHEET FOR DATA.
[2020-01-04] MEDS: levoFLOXacin 500MG 100 ML IV SCH (08:49)
[2020-01-04] MEDS: PANTOPRAZOLE 40 MG/10 ML VIAL INJ IV SCH (09:28)
[2020-01-04] MEDS: ENOXAPARIN SOD 30 MG/0.3 ML SYRINGE SC SCH (09:28)
[2020-01-04] MEDS: CEFEPIME 2 GM in SODIUM CHL 0.9% 50 ML IV SCH ×2 (09:36→22:28)
[2020-01-04] MEDS ORDERED: BUMETANIDE 2.5mg/10ml (0.25 mg/ml) INJ IV SCH (10:00)
--- NOTE | 2020-01-04 10:15 | NUR ---
FAMILY UPDATED OF PT STATUS.
--- NOTE | 2020-01-04 12:10 | NUR ---
Respiratory note: ROUTINE VENT CHECK DONE. TITRATED FIO2 TO 60%. PT'S BREATH SOUNDS ARE COARSE, SUCTION MODERATE YELLOW CLER SECRETION FROM ETT AND ORALLY. PT RECEIVED [place] INLINE. NO ADVERSE REACTION NOTED. RN AT BEDSIDE.
--- NOTE | 2020-01-04 17:00 | NUR ---
INITIAL CONTACT REPORT RECEIVED FROM LOREN DUFF, CARE ASSUMED. PT OBSERVED RESTING IN BED. EYES OPENING SPONTANEOUSLY. NO DISTRESS NOTED. PT DOES NOT TRACK OR FOLLOW COMMANDS. SEDATION OF VERSED AND FENTANYL IN USE. PUPILS ARE EQUAL AND REACTIVE TO LIGHT. PULSES PALPATION RADIAL AND PEDAL BILATERALLY. LUNGS CLEAR ANTERIORLY, TOLERATING VENTILATION WELL AT THIS TIME. OXYGEN SATURATION 95%. LING CATHETER PRESENT, PATENT, AND SECURED BELOW BLADDER. PT ON SPECIALTY AIR MATTRESS. ALL EXTREMITIES OFF LOADED ON PILLOWS. SEE SKIN/WOUND ASSESSMENT. ALARMS IN PLACE. RIGHT IJ TLC, DRESSING CDI. BED LOCKED IN LOWEST POSITION. WILL CONTINUE TO MONITOR.
--- NOTE | 2020-01-04 17:23 | NUR ---
CARES PARTIAL LINEN CHANGE COMPLETE. BELEM CARE COMPLETE. PT REPOSITIONED ON SIDE. VS REMAINING STABLE. WILL CONTINUE TO MONITOR.
--- NOTE | 2020-01-04 18:10 | NUR ---
MD VISIT ROUNDING. NEW ORDERS OBTAINED.
[2020-01-04] MEDS ORDERED: Osmolite 1.2 Cal One Liter GT SCH (18:15)
--- NOTE | 2020-01-04 19:18 | NUR ---
REPORT REPORT GIVEN TO LUIS DUFF, CARE ENDORSED.
--- NOTE | 2020-01-04 20:00 | NUR ---
RECIEVED PT INTUBATED AND LIGHTLY SEDATED, EYES OPEN DIFFICULT TO DETERMINE IF PT IS TRACKING, PT NOTED TO HAVE TREMORS WHEN STIMULATED, PT WITH HX OF CP, ARMS AND HANDS ARE CONTRACTED,LEFT MORE RIGID, FEET ARE DEFORMED, ABD DISTENDED AND FIRM, GENERALIZED EDEMA WELL SCROTOL EDEMA, SEE INTERVENTIONS FOR FURTHER ASSESSMENT, DRIPS AND VITAL SIGNS, DR. Yehuda GILL CALLED AND INFORMED THIS NURSE THAT THE WAS SPOKEN TO REGARDING A TERMINAL WEAN TOMARROW Addendum: 01/05/20 at 0247 by Zena Flores RN DR. Yehuda GILL SPOKE WITH MOTHER, NOT
--- NOTE | 2020-01-04 20:15 | NUR ---
FAMILY CALL PATIENT'S MOTHER CALLED CRYING AND REQUESTED UPDATE ABOUT PATIENT WELL INQUIRING ABOUT TERMINAL WEAN SHE HAD DISCUSSED WITH MD. THIS NURSE GAVE HER AN UPDATE ON THE PATIENT'S CONDITION AFTER SHE VERIFIED CORRECT PASSWORD. INFORMED HER THAT THE NEXT OF KIN, SHE HAS THE RIGHT TO MAKE THE DECISION ABOUT THE TERMINAL WEAN AND ENCOURAGED HER TO DISCUSS ALL OPTIONS WITH MD PRIOR TO MAKING HER FINAL DECISION. ALL QUESTIONS AND CONCERNS ADDRESSED. SHE VERBALIZED UNDERSTANDING.
[2020-01-04] MEDS: LACTULOSE 20Gm/30ML SOLN PO SCH (22:36)
[2020-01-04] MEDS: BUMETANIDE 1mg/4ml VIAL (0.25mg/ml) IV SCH (22:36)
[2020-01-04] MEDS ORDERED: levETIRAcetam 500 MG/5ML INJ IV ONE (23:00)
[2020-01-05] VITALS (101 sets, daily range): BP systolic 81–141; BP diastolic 38–98
[2020-01-05] MEDS: IPRATROPIUM BROM 0.5 MG/2.5ML INH SOL NEB SCH ×4 (00:06→18:26)
[2020-01-05] MEDS: ALBUTEROL SULF 2.5 MG/0.5ML(0.5%) NEB SOLN NEB SCH ×4 (00:06→18:26)
--- NOTE | 2020-01-05 01:30 | NUR ---
COMPLETE BATH AND NAYELI CHANGE, Z GUARD APPLIED TO EXCORIATED AREAS, NO STOOL
[2020-01-05 04:35] LABS: Basophils # (auto) 0.1 10 ^3/uL (0-0.2); Basophils % (auto) 0.6 % (0.0-2.0); Eosinophils # (auto) 0.5 10 ^3/uL (0-0.8); Eosinophils % (auto) 5.1 % (0.0-7.0); Hematocrit 36.2 % (41.0-53.0); Lymphocytes # (auto) 1.7 10 ^3/uL (0.4-5.4); Lymphocytes % (auto) 17.2 % (10.0-50.0); Mean Corpuscular Hemoglobin 32.3 pg (28.0-32.0); Mean Corpuscular Hgb Conc. 33.3 g/dL (32.0-36.0); Mean Corpuscular Volume 97.1 fL (80.0-100.0); Monocytes # (auto) 1.4 10 ^3/uL (0-1.3); Monocytes % (auto) 13.9 % (0.0-12.0); Neutrophils # (auto) 6.3 10 ^3/uL (1.6-8.6); Neutrophils % (auto) 63.2 % (37.0-80.0); Platelet Count (auto) 343 10^3/uL (140-450); Red Blood Cells 3.73 10^6/uL (4.5-5.90); Red Cell Distribution Width 13.6 % (11.8-14.3)
[2020-01-05 04:55] LABS: BUN/Creatinine Ratio 6.3; Calcium 8.8 mg/dL (8.5-10.1); Potassium 3.6 mmol/L (3.5-5.1)
[2020-01-05] MEDS: PHENYLEPHRINE IV 250 ML IV SCH ×3 (05:20→22:00)
[2020-01-05] MEDS: BUMETANIDE 1mg/4ml VIAL (0.25mg/ml) IV SCH ×3 (06:00→22:00)
[2020-01-05] MEDS ORDERED: levETIRAcetam 500 MG/5ML INJ IV ONE (06:04)
[2020-01-05] MEDS: OXcarbazepine 300 MG TAB PO SCH ×4 (06:11→22:00)
[2020-01-05] MEDS: BUDESONIDE (INHALATION) 0.5 MG/2 ML NEB NEB SCH ×2 (06:26→18:26)
--- NOTE | 2020-01-05 08:42 | NUR ---
Family Called Mother called for update, password verified. Notified on patient's status and condition. Worried and crying, stated concern for terminal wean as spoken with Dr. Camara yesterday. Mother do not wish to proceed with terminal wean at this time. Mother states she is going to communicate for updates throughout the day. All questions answered.
[2020-01-05] MEDS: LACTULOSE 20Gm/30ML SOLN PO SCH ×2 (08:59→22:00)
[2020-01-05] MEDS: ENOXAPARIN SOD 30 MG/0.3 ML SYRINGE SC SCH (08:59)
[2020-01-05] MEDS: PANTOPRAZOLE 40 MG/10 ML VIAL INJ IV SCH (08:59)
[2020-01-05] MEDS: levoFLOXacin 500MG 100 ML IV SCH (08:59)
[2020-01-05] MEDS: CEFEPIME 2 GM in SODIUM CHL 0.9% 50 ML IV SCH ×2 (09:57→22:39)
--- NOTE | 2020-01-05 10:09 | NUR ---
Nutrition Followup Notes Wt: 83.0 kg Pt`s intubated sedated with no family by beside. pt is currently NPO with no new diet orders Est energy needs 0057-6858 kcal (30-35 kcal/kg BW 59kg) , Est protein needs 59-71g (1-1.2g/kg BW 59kg) . Will reassess prn. LABS: All otehr labs wnl ALB 2.0 L GI: Pt had 2 BM on 01/02 per RN doc BS: 9 high risk. Refer to wound assessment report for full details. PES: Inadequate oral intake aeb pt with NPO diet order r/t current medical condition, intubated Comments Will continue to closely monitor pertinent labs, PO intake, skin status and weight trends. Will f/u in 2-3 days Rec: 1) Consider Osmolite 1.2 @ 60 ml/hr if TF is considered for pt and GI is accessible. 2) Consider adding MVI and Vit C BID for wound healing. 3) advance diet as medically feasible. 4) consider prostat 1 packet bid. 5) continue current plan of care
[2020-01-05] MEDS: MIDAZOLAM DRIP 50 mg/50mL 50 ML IV SCH (11:00)
[2020-01-05] MEDS ORDERED: POTASSIUM CHL 20MEQ/100ML 200 ML IV ONE (13:43)
[2020-01-05] MEDS: POTASSIUM CHL 20MEQ/100ML 100 ML IV SCH ×2 (13:59→15:45)
--- NOTE | 2020-01-05 16:52 | NUR ---
Mother on the Phone Updated on patient's status. All questions answered. Petitioning to be notified right at CPAP trial/Extubation process starts. States she does not wish for her son to be re-intubated if he fails CPAP/extubation trial. Dr. Little and RT Flores notified, aware of wishes. Per Dr. Little to hold off feedings until extubation process is completed.
--- NOTE | 2020-01-05 16:55 | NUR ---
CPAP TRIAL INITIATED PER DR ZULETA PS 7, PEEP5. PT FAILED CPAP DUE TO APNEA. PT PLACED BACK ON PREVIOUS SETTINGS. MD ZULETA CHANGED PEEP TO 10.
[2020-01-05] MEDS: fentaNYL Drip 2500mCg/250mlNS 250 ML IV SCH (18:30)
[2020-01-05] MEDS: DexMEDEtomidine 400 MCG in D5W 5% 96 ML IV SCH (19:00)
[2020-01-06] VITALS (106 sets, daily range): BP systolic 87–125; BP diastolic 47–81
[2020-01-06] MEDS: PHENYLEPHRINE IV 250 ML IV SCH ×3 (02:00→16:00)
[2020-01-06] MEDS ORDERED: SODIUM BICARBONATE 50ML VIAL 100 ML in D5W/SOD CHL 0.45% 1,000 ML IV SCH (02:30)
[2020-01-06] MEDS ORDERED: SODIUM BICARBONATE 8.4 % INJ 50ML VIAL IV ONE (02:30)
--- NOTE | 2020-01-06 05:00 | NUR ---
k level 2.8 this am, obtained order for replacement from hospitalist.
[2020-01-06 05:13] LABS: Calcium 8.7 mg/dL (8.5-10.1)
[2020-01-06 05:16] LABS: BUN/Creatinine Ratio 4.9
[2020-01-06 05:19] LABS: Potassium 2.8 mmol/L (3.5-5.1)
[2020-01-06] MEDS: POTASSIUM CHL 20MEQ/100ML 100 ML IV SCH ×3 (06:00→14:08)
[2020-01-06] MEDS: OXcarbazepine 300 MG TAB PO SCH ×4 (06:00→22:00)
[2020-01-06] MEDS: BUMETANIDE 1mg/4ml VIAL (0.25mg/ml) IV SCH ×3 (06:00→22:00)
[2020-01-06] MEDS: IPRATROPIUM BROM 0.5 MG/2.5ML INH SOL NEB SCH ×4 (06:52→18:41)
[2020-01-06] MEDS: ALBUTEROL SULF 2.5 MG/0.5ML(0.5%) NEB SOLN NEB SCH ×4 (06:52→18:41)
[2020-01-06] MEDS: BUDESONIDE (INHALATION) 0.5 MG/2 ML NEB NEB SCH ×2 (06:52→18:41)
--- NOTE | 2020-01-06 08:21 | NUR ---
Mother On the Phone Updated on patient's status and POC. Requesting to be notified once patient is ready for CPAP trial as she would like to be near by the hospital during the extubation process.
[2020-01-06] MEDS: LACTULOSE 20Gm/30ML SOLN PO SCH ×2 (09:36→22:00)
[2020-01-06] MEDS: ENOXAPARIN SOD 30 MG/0.3 ML SYRINGE SC SCH (09:36)
[2020-01-06] MEDS ORDERED: POTASSIUM EFFERVESENT TAB 25 MEQ GT ONE (09:45)
[2020-01-06] MEDS: DOPamine 1600MCG/ML D5W 250 ML IV SCH (10:00)
[2020-01-06] MEDS: PANTOPRAZOLE 40 MG/10 ML VIAL INJ IV SCH (10:23)
[2020-01-06] MEDS ORDERED: MEROPENEM 1GM IVPB 0 ML IV ONE (10:47)
[2020-01-06] MEDS: levoFLOXacin 500MG 100 ML IV SCH (11:00)
[2020-01-06] MEDS: CEFEPIME 2 GM in SODIUM CHL 0.9% 50 ML IV SCH ×2 (12:00→22:18)
[2020-01-06 13:10] LABS: Magnesium 1.8 mg/dL (1.6-2.6); Potassium 4.1 mmol/L (3.5-5.1)
[2020-01-06] MEDS ORDERED: MAGNESIUM SULFATE 1GM/100ML 100 ML IV ONE (14:15)
--- NOTE | 2020-01-06 14:26 | NUR ---
Mother on the Phone Updated on patient's status and POC.
--- NOTE | 2020-01-06 15:10 | NUR ---
Provider at Bedside Dr. New at bedside for evaluation. Updated on patient's status. No orders received at this time. Will continue to monitor closely.
--- NOTE | 2020-01-06 15:35 | NUR ---
Neurology Dr. Hankins at bedside for evaluation. States patient has poor prognosis. No orders received.
[2020-01-06] MEDS: MIDAZOLAM DRIP 50 mg/50mL 50 ML IV SCH (16:00)
--- NOTE | 2020-01-06 16:13 | NUR ---
CPAP TRIAL NOT DONE TODAY, DUE TO PT. DESATURATION. FI02 INCREASED FROM 50% TO 70%. SP02 90-91%.
[2020-01-06] MEDS: fentaNYL Drip 2500mCg/250mlNS 250 ML IV SCH (16:21)
[2020-01-06] MEDS: acetaZOLAMIDE SODIUM 500 MG VL IV SCH (22:00)
[2020-01-06] MEDS: POTASSIUM EFFERVESENT TAB 25 MEQ GT SCH (22:16)
[2020-01-07] VITALS (95 sets, daily range): BP systolic 86–139; BP diastolic 32–96
[2020-01-07] MEDS: IPRATROPIUM BROM 0.5 MG/2.5ML INH SOL NEB SCH ×5 (00:18→23:53)
[2020-01-07] MEDS: ALBUTEROL SULF 2.5 MG/0.5ML(0.5%) NEB SOLN NEB SCH ×5 (00:18→23:53)
[2020-01-07 04:37] LABS: Albumin 1.8 g/dL (3.4-5.0); Calcium 9.2 mg/dL (8.5-10.1)
[2020-01-07 04:42] LABS: BUN/Creatinine Ratio 10.4; Bilirubin, Total 0.2 mg/dL (0.2-1.0); Total Protein 6.9 g/dL (6.4-8.2)
[2020-01-07] MEDS: BUMETANIDE 1mg/4ml VIAL (0.25mg/ml) IV SCH ×3 (05:26→22:00)
[2020-01-07] MEDS: OXcarbazepine 300 MG TAB PO SCH ×4 (05:26→22:40)
[2020-01-07] MEDS: PHENYLEPHRINE IV 250 ML IV SCH ×2 (05:30→15:40)
[2020-01-07] MEDS: BUDESONIDE (INHALATION) 0.5 MG/2 ML NEB NEB SCH ×2 (06:10→18:18)
--- NOTE | 2020-01-07 06:21 | NUR ---
Respiratory note: RECEIVED PATIENT ON V15 ESPRIT VENT ORALLY INTUBATED WITH A 7.5 ETT SECURED VIA KARRI AT THE 25CM MARKING, AND MECHANICALLY VENTILATED WITH THE CHARTED SETTINGS. SPO2 93%, LUNG SOUNDS DIM T/O, MODERATE AMOUNT OF THICK FAJARDO SECRETIONS WHEN SUCTIONED. SKIN IS WARM/DRY TO THE TOUCH AND IS INTACT NEAR KARRI SITE. THERE IS AN OGT IN PLACE AND SECURED TO THE ETT, A TRIPLE LUMEN CENTRAL LINE IS PLACED IN THE RIGHT IJ. UPPER EXTREMITIES ARE CONTRACTED, WELL FEET. NO NEW CXR TO ASSESS. PATIENT IS UNRESPONSIVE TO BOTH VERBAL/TACTILE STIMULI AND IS SEDATED ON FENTANYL, VERSED, AND PRECEDEX DRIPS. HE IS RESTING COMFORTABLY AND TOLERATING VENT WELL, NO CHANGES MADE. VENT PLUGGED INTO RED OUTLET AND ALL ALARMS ARE SET AND AUDIBLE. WILL CONTINUE TO ASSESS PATIENT WELL VENTILATOR FUNCTION. [employer] RUN INLINE.
--- NOTE | 2020-01-07 07:30 | NUR ---
OPENING Report received from Randi BLAKE RN. Care initiated and initial assessment complete.
[2020-01-07] MEDS: levoFLOXacin 500MG 100 ML IV SCH (09:00)
[2020-01-07] MEDS: acetaZOLAMIDE SODIUM 500 MG VL IV SCH ×2 (10:00→22:00)
[2020-01-07] MEDS: CEFEPIME 2 GM in SODIUM CHL 0.9% 50 ML IV SCH ×2 (10:00→22:39)
[2020-01-07] MEDS: DexMEDEtomidine 400 MCG in D5W 5% 96 ML IV SCH ×2 (10:11→16:31)
[2020-01-07] MEDS: DOPamine 1600MCG/ML D5W 250 ML IV SCH (10:11)
[2020-01-07] MEDS: PANTOPRAZOLE 40 MG/10 ML VIAL INJ IV SCH (10:12)
[2020-01-07] MEDS: ENOXAPARIN SOD 30 MG/0.3 ML SYRINGE SC SCH (10:12)
[2020-01-07] MEDS: LACTULOSE 20Gm/30ML SOLN PO SCH ×2 (10:12→22:00)
[2020-01-07] MEDS: POTASSIUM EFFERVESENT TAB 25 MEQ GT SCH ×2 (10:12→22:00)
[2020-01-07 10:43] LABS: Hemoglobin 12.6 g/dL (13.5-17.5); Mean Corpuscular Hemoglobin 31.8 pg (28.0-32.0); Mean Corpuscular Hgb Conc. 33.2 g/dL (32.0-36.0); Mean Corpuscular Volume 95.6 fL (80.0-100.0); Platelet Count (auto) 312 10^3/uL (140-450); Red Blood Cells 3.97 10^6/uL (4.5-5.90); Red Cell Distribution Width 13.2 % (11.8-14.3); White Blood Cell 10.8 10^3/uL (4.4-10.8)
[2020-01-07 10:48] LABS: Basophils % (manual) 0 (0.0-2.0); Blast Cells 0; Metamyelocytes % 0; Promyelocytes % 0; Reactive Lymphocytes 0
--- NOTE | 2020-01-07 11:50 | NUR ---
WOUND CARE NOTE: IN TO SEE PATIENT AT THIS TIME FOR SKIN INTEGRITY MONITORING. PATIENT CONTINUES TO BE INTUBATED, NON RESPONSIVE. HE IS RESTING ON SPECIALTY AIR MATTRESS. PATIENT'S WOUND TO THE RIGHT HIP HAS EVOLVED FROM AN INTACT DTI TO PARTIAL THICKNESS OPEN AREAS IN MULTIPLE AREAS WITHIN THE 11 X 14 CM WOUND. ERYTHEMA HAS LESSENED, AREAS THAT WERE PURPLE ARE OPEN. MILD INDURATON NOTED. APPLIED THERAHONEY, OPTIFOAM GENTLE DRESSING TO WOUND. INTRAGLUTEAL, PERINEAL, SCROTAL SKIN IS RED WITH INTERTRIGO. PATIENT WOULD BENEFIT FROM ANTIFUNGAL CLEAR OINTMENT. PATIENT REPOSITIONED ONTO RIGHT SIDE, REDISTRIBUTING PRESSURE POINTS, WITH PILLOWS. RECOMMEND: EOD DRESSING CHANGE WITH THERAHONEY, OPTIFOAM GENTLE DRESSING TO RIGHT HIP, ANTIFUNGAL CLEAR OINTMENT TO REDDENED SKIN OF INTRAGLUTEAL FOLD BID/PRN, D/C ZGUARD; CONTINUATION WITH ALL OTHER WOUND CARE ORDERS PREVIOUSLY PRESCRIBED BY MD. WOUND CARE TEAM WILL CONTINUE TO MONITOR. Addendum: 01/07/20 at 1458 by Danae Segovia RN Amended: Links added.
[2020-01-07 12:26] LABS: Band Neutrophils % (manual) 11; Eosinophils % (manual) 1 (0-7); Lymphocytes % (manual) 21 (10.0-50.0); Monocytes % (manual) 6 (0-12); Myelocytes % 1
--- NOTE | 2020-01-07 14:05 | NUR ---
Respiratory note: FIO2 DECREASED TO 75% AT THIS TIME. OMEGA CRUZ MADE AWARE OF CHANGE.
--- NOTE | 2020-01-07 14:31 | NUR ---
Nutrition Followup Notes Wt: 83.0 kg as recorded on 01/04 Pt`s intubated sedated with no family by beside. pt is currently NPO since 12/31 with no new diet orders. Noted pt failed weaning trial this am per MD doc. Will continue to monitor PO status, skin status, pertinent labs and weight trends. Will f/u in 2-3 days. Est energy needs 6362-8824 kcal (30-35 kcal/kg BW 59kg) , Est protein needs 59-71g (1-1.2g/kg BW 59kg) . Will reassess prn. LABS: ALB 1.8 L, All other labs wnl GI: Pt had 3 BM on 01/02 per RN doc BS: 10 high risk. Refer to wound assessment report for full details. PES: Inadequate oral intake aeb pt with NPO diet order r/t current medical condition, intubated Comments Will continue to closely monitor pertinent labs, PO intake, skin status and weight trends. Will f/u in 2-3 days Rec: 1) Consider Osmolite 1.2 @ 60 ml/hr if TF is considered for pt and GI is accessible. 2) Consider adding MVI and Vit C BID for wound healing. 3) advance diet as medically feasible. 4) consider prostat 1 packet bid. 5) continue current plan of care
[2020-01-07] MEDS: MIDAZOLAM DRIP 50 mg/50mL 50 ML IV SCH (14:46)
[2020-01-07] MEDS: fentaNYL Drip 2500mCg/250mlNS 250 ML IV SCH (16:21)
[2020-01-07 18:04] LABS: Basophils # (auto) 0.1 10 ^3/uL (0-0.2); Eosinophils # (auto) 0.5 10 ^3/uL (0-0.8); Eosinophils % (auto) 3.6 % (0.0-7.0); Hematocrit 40.3 % (41.0-53.0); Hemoglobin 13.4 g/dL (13.5-17.5); Lymphocytes # (auto) 2.7 10 ^3/uL (0.4-5.4); Lymphocytes % (auto) 20.9 % (10.0-50.0); Mean Corpuscular Hemoglobin 32.4 pg (28.0-32.0); Mean Corpuscular Hgb Conc. 33.3 g/dL (32.0-36.0); Mean Corpuscular Volume 97.1 fL (80.0-100.0); Monocytes % (auto) 7.7 % (0.0-12.0); Neutrophils # (auto) 8.6 10 ^3/uL (1.6-8.6); Neutrophils % (auto) 66.8 % (37.0-80.0); Nucleated Red Blood Cells % 0.1 %; Platelet Count (auto) 323 10^3/uL (140-450); Red Blood Cells 4.15 10^6/uL (4.5-5.90); Red Cell Distribution Width 13.5 % (11.8-14.3); White Blood Cell 12.9 10^3/uL (4.4-10.8)
[2020-01-07 18:28] LABS: Albumin 1.9 g/dL (3.4-5.0); Anion Gap 8 (5-15); Bilirubin, Direct < 0.1 mg/dL (0-0.2); Blood Urea Nitrogen 7 mg/dL (7-18); Calcium 9.3 mg/dL (8.5-10.1); Carbon Dioxide 30 mmol/L (21-32); Chloride 95 mmol/L (98-107); Glucose 145 mg/dL (74-106); Magnesium 2.2 mg/dL (1.6-2.6); Potassium 3.3 mmol/L (3.5-5.1); Sodium 133 mmol/L (136-145)
[2020-01-07 18:31] LABS: Alanine Aminotransferase 18 U/L (16-61); Alkaline Phosphatase 63 U/L (45-117); Aspartate Aminotransferase 22 U/L (15-37); BUN/Creatinine Ratio 10.3; Bilirubin, Total 0.2 mg/dL (0.2-1.0); GFR African American 172 mL/min; GFR Non-African American 142 mL/min; Total Protein 7.1 g/dL (6.4-8.2)
[2020-01-07 19:26] LABS: INR 1.72 (0.9-1.15); Partial Thromboplastin Time 42.1 sec (23.64-32.05)
[2020-01-08] VITALS (82 sets, daily range): BP systolic 82–145; BP diastolic 41–88
[2020-01-08] MEDS: PHENYLEPHRINE IV 250 ML IV SCH ×3 (00:15→16:40)
[2020-01-08 04:22] LABS: Mean Corpuscular Hemoglobin 32.7 pg (28.0-32.0); Mean Corpuscular Hgb Conc. 33.4 g/dL (32.0-36.0); Platelet Count (auto) 315 10^3/uL (140-450); Red Blood Cells 3.98 10^6/uL (4.5-5.90); Red Cell Distribution Width 13.6 % (11.8-14.3); White Blood Cell 12.1 10^3/uL (4.4-10.8)
[2020-01-08 04:42] LABS: INR 1.72 (0.9-1.15); Partial Thromboplastin Time 33.9 sec (23.64-32.05)
[2020-01-08 04:44] LABS: Potassium 3.4 mmol/L (3.5-5.1)
[2020-01-08 04:52] LABS: Albumin 1.9 g/dL (3.4-5.0); BUN/Creatinine Ratio 14.5; Bilirubin, Direct 0.1 mg/dL (0-0.2); Bilirubin, Total 0.2 mg/dL (0.2-1.0); Calcium 8.9 mg/dL (8.5-10.1); Magnesium 2.2 mg/dL (1.6-2.6)
[2020-01-08 04:54] LABS: Basophils % (manual) 0 (0.0-2.0); Blast Cells 0; Promyelocytes % 0; Reactive Lymphocytes 0
[2020-01-08] MEDS: BUMETANIDE 1mg/4ml VIAL (0.25mg/ml) IV SCH ×3 (05:01→22:07)
[2020-01-08] MEDS: OXcarbazepine 300 MG TAB PO SCH ×4 (05:02→22:28)
[2020-01-08 05:14] LABS: Band Neutrophils % (manual) 1; Eosinophils % (manual) 5 (0-7); Lymphocytes % (manual) 22 (10.0-50.0); Metamyelocytes % 1; Monocytes % (manual) 4 (0-12); Myelocytes % 2
[2020-01-08] MEDS: DOPamine 1600MCG/ML D5W 250 ML IV SCH (05:14)
[2020-01-08] MEDS: IPRATROPIUM BROM 0.5 MG/2.5ML INH SOL NEB SCH ×4 (06:39→23:54)
[2020-01-08] MEDS: ALBUTEROL SULF 2.5 MG/0.5ML(0.5%) NEB SOLN NEB SCH ×4 (06:40→23:54)
--- NOTE | 2020-01-08 07:20 | NUR ---
OPENING NOTE RECEIVED REPORT FROM QUALITY ASSURANCE COACH RN. PT IS INTUBATED AND SEDATED. NO S/S OF DISTRESS NOTED. SEIZURE PRECAUTIONS PLACED FOR HX OF SEIZURES. BED IS LOCKED AT LOWEST POSITION, SIDE RAILS ARE UP. WILL CONTINUE TO MONITOR. Signed: 01/08/20 at 1541 by TAMIE KRAMER SN <Co-Signature Required> Co-Signed: 01/08/20 at 1541 by Ana Lilia Gil RN
--- NOTE | 2020-01-08 07:30 | NUR ---
INITIAL ASSESSMENT COPLETED. SEE FLOW SHEET FOR DATA.
--- NOTE | 2020-01-08 07:35 | NUR ---
DR MONTERO AT BEDSIDE DISCUSSED PT STATUS AND POC. Signed: 01/08/20 at 1541 by TAMIE KRAMER SN <Co-Signature Required> Co-Signed: 01/08/20 at 1541 by Ana Lilia Gil RN
[2020-01-08] MEDS: levoFLOXacin 500MG 100 ML IV SCH (08:51)
--- NOTE | 2020-01-08 09:00 | NUR ---
BRIAN (MOTHER) OTP PW VERIFIED. UPDATED PT STATUS AND POC, ALL QUESTIONS ANSWERED. PT REQUESTS TO SPEAK TO WILL INFORM DR AVILEZ OF PTS MOTHERS REQUEST. Signed: 01/08/20 at 1542 by TAMIE KRAMER <Co-Signature Required> Co-Signed: 01/08/20 at 1542 by Ana Lilia Gil RN
[2020-01-08] MEDS: POTASSIUM EFFERVESENT TAB 25 MEQ GT SCH ×2 (09:30→22:26)
[2020-01-08] MEDS: CEFEPIME 2 GM in SODIUM CHL 0.9% 50 ML IV SCH ×2 (09:32→22:28)
[2020-01-08] MEDS: ENOXAPARIN SOD 30 MG/0.3 ML SYRINGE SC SCH (09:33)
[2020-01-08] MEDS: PANTOPRAZOLE 40 MG/10 ML VIAL INJ IV SCH (09:33)
[2020-01-08] MEDS: LACTULOSE 20Gm/30ML SOLN PO SCH ×2 (09:33→22:09)
--- NOTE | 2020-01-08 09:40 | NUR ---
CARDIOLOGY ONEAL AGRICULTURAL ENGINEER AT BEDSIDE. DISCUSSED POC AND PT STATUS. Signed: 01/08/20 at 1542 by TAMIE KRAMER <Co-Signature Required> Co-Signed: 01/08/20 at 1542 by Ana Lilia Gil RN
[2020-01-08] MEDS: BUDESONIDE (INHALATION) 0.5 MG/2 ML NEB NEB SCH ×2 (11:03→21:54)
[2020-01-08] MEDS: acetaZOLAMIDE SODIUM 500 MG VL IV SCH ×2 (12:02→22:27)
--- NOTE | 2020-01-08 12:50 | NUR ---
Respiratory note: FI02 DECREASED TO 65%. PT TOLERATING WELL.
[2020-01-08] MEDS: fentaNYL Drip 2500mCg/250mlNS 250 ML IV SCH (13:23)
--- NOTE | 2020-01-08 13:55 | NUR ---
DR AVILEZ AT BEDSIDE DISCUSSED PT STATUS AND POC. INFORMED OF MOTHERS REQUEST TO SPEAK TO A DOCTOR. STATED HE WILL CALL HER. Signed: 01/08/20 at 1543 by TAMIE KRAMER <Co-Signature Required> Co-Signed: 01/08/20 at 1543 by Ana Lilia Gil RN
--- NOTE | 2020-01-08 15:00 | NUR ---
Family updated on pt status Family of [facility] updated on patient's status and condition. All questions and concerns addressed. Mother verbalized understanding.
[2020-01-08] MEDS: DexMEDEtomidine 400 MCG in D5W 5% 96 ML IV SCH (16:31)
[2020-01-08] MEDS: MIDAZOLAM DRIP 50 mg/50mL 50 ML IV SCH (18:00)
--- NOTE | 2020-01-08 18:47 | NUR ---
RT NOTE RECEIVED PT INTUBATED AND ON VENT V15 ON STATED SETTINGS. VENT IS PLUGGED TO RED OUTLET. ALARMS ARE ON AND AUDIBLE TO NURSING. AMBU BAG AT BEDSIDE AND CONNECTED TO O2. 7.5 ETT IS SECURED WITH ANCHORFAST WITH BITE BLOCK AT 25 CM AT THE TEETH AT THE ORAL RIGHT. BS ARE CTA. PT SUCTIONED FOR SMALL RETURN. HHN GIVEN INLINE WITH 2.5 MG ALBUTEROL AND 0.5 MG ATROVENT WITHOUT ADVERSE REACTION NOTED. CONT ORDERED. POX 94% Addendum: 01/08/20 at 1853 by Coral San RT Amended: Links added.
--- NOTE | 2020-01-08 20:00 | NUR ---
RECIEVED PT AWAKE VENTILATED AND ON VERSED 5MG/HR AND FENTANYL 100MCG/KG/MIN, AFEBRILE, STACH 100, SEE INTERVENTIONS FOR HEAD TO TOE ASSESSMENT AND VITAL SIGNS
--- NOTE | 2020-01-08 20:10 | NUR ---
RT NOTE ROUTINE VENT CHECK DONE. PT INTUBATED AND ON VENT V15 ON STATED SETTINGS. VENT IS PLUGGED TO RED OUTLET. ALARMS ARE ON AND AUDIBLE TO NURSING. AMBU BAG AT BEDSIDE AND CONNECTED TO O2. 7.5 ETT IS SECURED WITH ANCHORFAST WITH BITE BLOCK AT 25 CM AT THE TEETH AT THE ORAL RIGHT. OMEGA SMITH AT BEDSIDE CARING FOR PT. WATER LEVEL IS ADEQUATE. CONT ORDERED.CIRCUIT TEMP 34.2, POX 95% Addendum: 01/08/20 at 2036 by Coral San RT Amended: Links added.
--- NOTE | 2020-01-08 20:30 | NUR ---
SPOKE WITH PT MOTHER BRIAN, UPDATE GIVEN AND QUESTIONS ANSWERED
--- NOTE | 2020-01-08 21:54 | NUR ---
RT NOTE ROUTINE VENT CHECK DONE. PT INTUBATED AND ON VENT V15 ON STATED SETTINGS. VENT IS PLUGGED TO RED OUTLET. ALARMS ARE ON AND AUDIBLE TO NURSING. AMBU BAG AT BEDSIDE AND CONNECTED TO O2. 7.5 ETT IS SECURED WITH ANCHORFAST WITH BITE BLOCK AT 25 CM AT THE TEETH AT THE ORAL LEFT. BS ARE CLEAR/DIM. HHN GIVEN INLINE WITH 0.5 MG PULMICORT WITHOUT ADVERSE REACTION NOTED. PT WAS SUCTIONED FOR SMALL RETURN FROM ETT AND LARGE RETURN ORALLY. WATER LEVEL IS ADEQUATE. CONT ORDERED.CIRCUIT TEMP 34.0, POX 96% Addendum: 01/08/20 at 2304 by Coral San RT Amended: Links added.
--- NOTE | 2020-01-08 23:49 | NUR ---
RT NOTE ROUTINE VENT CHECK DONE. PT INTUBATED AND ON VENT V15 ON STATED SETTINGS. VENT IS PLUGGED TO RED OUTLET. ALARMS ARE ON AND AUDIBLE TO NURSING. AMBU BAG AT BEDSIDE AND CONNECTED TO O2. 7.5 ETT IS SECURED WITH ANCHORFAST WITH BITE BLOCK AT 25 CM AT THE TEETH AT THE ORAL LEFT. BS ARE CLEAR/DIM. HHN GIVEN INLINE WITH 2.5 MG ALBUTEROL AND 0.5 M G ATROVENT WITHOUT ADVERSE REACTION NOTED. PT WAS SUCTIONED FOR SMALL RETURN FROM ETT. WATER LEVEL IS ADEQUATE. CONT ORDERED.CIRCUIT TEMP 34.0, POX 94% Addendum: 01/09/20 at 0033 by Coral San RT Amended: Links added.
[2020-01-09] VITALS (63 sets, daily range): BP systolic 86–130; BP diastolic 44–93
[2020-01-09] MEDS: PHENYLEPHRINE IV 250 ML IV SCH ×3 (01:00→17:40)
--- NOTE | 2020-01-09 01:53 | NUR ---
RT NOTE ROUTINE VENT CHECK DONE. PT INTUBATED AND ON VENT V15 ON STATED SETTINGS. VENT IS PLUGGED TO RED OUTLET. ALARMS ARE ON AND AUDIBLE TO NURSING. AMBU BAG AT BEDSIDE AND CONNECTED TO O2. 7.5 ETT IS SECURED WITH ANCHORFAST WITH BITE BLOCK AT 25 CM AT THE TEETH AT THE ORAL LEFT.WATER LEVEL IS ADEQUATE. CONT ORDERED. CIRCUIT TEMP 34.1, POX 93% Addendum: 01/09/20 at 0159 by Coral San RT Amended: Links added.
[2020-01-09] MEDS: DOPamine 1600MCG/ML D5W 250 ML IV SCH (03:06)
--- NOTE | 2020-01-09 04:02 | NUR ---
RT NOTE ROUTINE VENT CHECK DONE. PT INTUBATED AND ON VENT V15 ON STATED SETTINGS. VENT IS PLUGGED TO RED OUTLET. ALARMS ARE ON AND AUDIBLE TO NURSING. AMBU BAG AT BEDSIDE AND CONNECTED TO O2. 7.5 ETT IS SECURED WITH ANCHORFAST WITH BITE BLOCK AT 25 CM AT THE TEETH AT THE ORAL LEFT.WATER LEVEL IS ADEQUATE. CONT ORDERED.CIRCUIT TEMP 34.1, POX 95% Addendum: 01/09/20 at 0418 by Coral San RT Amended: Links added.
--- NOTE | 2020-01-09 05:00 | NUR ---
COMPLETE BATH GIVEN AND LINEN CHANGED, CLEANSED OF VERY LARGE LIQUID BRN BM, PERINEUM AND PERIANAL AREA EXCORIATED, Alexandro PAYNE, PEG TUBE DRSG CHANGED,LEAKS BILE FLUID, METICULOUS ORAL CARE
[2020-01-09] MEDS: BUMETANIDE 1mg/4ml VIAL (0.25mg/ml) IV SCH ×2 (06:00→14:00)
[2020-01-09] MEDS: ALBUTEROL SULF 2.5 MG/0.5ML(0.5%) NEB SOLN NEB SCH ×3 (06:07→18:19)
[2020-01-09] MEDS: IPRATROPIUM BROM 0.5 MG/2.5ML INH SOL NEB SCH ×3 (06:07→18:19)
[2020-01-09] MEDS: BUDESONIDE (INHALATION) 0.5 MG/2 ML NEB NEB SCH ×2 (06:07→18:19)
[2020-01-09] MEDS: OXcarbazepine 300 MG TAB PO SCH ×2 (06:42→12:12)
--- NOTE | 2020-01-09 07:25 | NUR ---
INITIAL CONTACT REPORT RECEIVED FROM LUIS DUFF, CARE ASSUMED. PT OBSERVED RESTING IN BED, ON SPECIALTY AIR MATTRESS. PT EYES OPENING SPONTANEOUSLY BUT NOT TRACKING OR FOLLOWING COMMANDS. NO DISTRESS NOTED AT THIS TIME. PUPILS REACTIVE TO LIGHT. PHYSICAL ASSESSMENT COMPLETE. PULSES PALPABLE BILATERALLY. SINUS TACHYCARDIA NOTED ON BEDSIDE MONITOR 120'S. ALL OTHER VS STABLE AT THIS TIME. LUNGS CLEAR ANTERIORLY. TOLERATING MECHANICAL VENTILATION AT THIS TIME. SEE IV SPREADSHEET FOR DRIPS. LING CATHETER PRESENT, PATENT, AND SECURED BELOW BLADDER. OGT CLAMPED. PEG TUBE CLAMPED. PT REPOSITIONED ON SIDE. BED LOCKED IN LOWEST POSITION, ALARMS IN PLACE. WILL CONTINUE TO MONITOR.
[2020-01-09] MEDS: MIDAZOLAM DRIP 50 mg/50mL 50 ML IV SCH (07:44)
--- NOTE | 2020-01-09 08:02 | NUR ---
MD VISIT AT BEDSIDE ASSESSING PATIENT. NO NEW ORDERS RECEIVED AT THIS TIME.
--- NOTE | 2020-01-09 08:21 | NUR ---
CODE STATUS FAXED OVER CODE STATUS FORM FOR TERMINAL WEAN TODAY. FORM WILL BE SIGNED BY MOTHER WHEN AT BEDSIDE.
[2020-01-09] MEDS: levoFLOXacin 500MG 100 ML IV SCH (08:51)
[2020-01-09] MEDS: POTASSIUM EFFERVESENT TAB 25 MEQ GT SCH (09:29)
[2020-01-09] MEDS: PANTOPRAZOLE 40 MG/10 ML VIAL INJ IV SCH (09:29)
[2020-01-09] MEDS: LACTULOSE 20Gm/30ML SOLN PO SCH (09:29)
[2020-01-09] MEDS: acetaZOLAMIDE SODIUM 500 MG VL IV SCH (09:29)
[2020-01-09] MEDS: ENOXAPARIN SOD 30 MG/0.3 ML SYRINGE SC SCH (09:30)
[2020-01-09] MEDS: CEFEPIME 2 GM in SODIUM CHL 0.9% 50 ML IV SCH (10:03)
[2020-01-09] MEDS ORDERED: HYOSCYAMINE SULF 0.125 MG ODT TAB PO PRN (10:15)
[2020-01-09] MEDS ORDERED: ONDANSETRON HCL 4 MG/2 ML VIAL IV PRN (10:15)
[2020-01-09] MEDS ORDERED: MORPHINE SULFATE 4 MG/ML SYR/VIAL IV ONE (10:15)
[2020-01-09] MEDS ORDERED: LORazepam 2MG/ML-1ML VIAL IV PRN ×2 (10:15)
[2020-01-09] MEDS ORDERED: MORPHINE SULF INJ 2 MG/ML SYRINGE 1ML IV PRN (10:15)
--- NOTE | 2020-01-09 10:21 | NUR ---
FAMILY PT MOTHER AT BEDSIDE. MOTHER SIGNED DNR FORM AND AGREED TO TERMINAL WEAN. RT NOTIFIED OF PLAN.
--- NOTE | 2020-01-09 11:26 | NUR ---
Nutrition Followup Notes Wt: 68.1 kg Pt`s intubated sedated with no family by beside. pt is currently NPO for possible terminal wean. Will f/u in 2-3 days. Est energy needs [id number] kcal (30-35 kcal/kg BW 59kg) , Est protein needs 59-71g (1-1.2g/kg BW 59kg) . Will reassess prn. LABS: ALB 1.9 L GI: Pt had 1 BM today per RN doc BS: 10 high risk. Refer to wound assessment report for full details. PES: Inadequate oral intake aeb pt with NPO diet order r/t current medical condition, intubated Comments Will continue to closely monitor pertinent labs, NPO status, skin status and weight trends. Will f/u in 2-3 days Rec: 1) continue current plan of care
--- NOTE | 2020-01-09 11:45 | NUR ---
MD VISIT ROUNDING AT BEDSIDE. MD SPEAKING WITH PATIENT MOTHER AND FAMILY REGARDING STATUS AND PLAN OF CARE.
--- NOTE | 2020-01-09 12:05 | NUR ---
HOSPICE SPOKE WITH MEENAKSHI FROM [facility]. THEY ARE AWARE WE ARE TERMINALLY WEANING PATIENT TODAY. SIDEROGRAPHER STATED HE WILL CALL MOTHER TO MAKE ARRANGEMENTS FOR HOME DISCHARGE.
--- NOTE | 2020-01-09 12:10 | NUR ---
TEMPERATURE AXILLARY TEMP 100.4, COOLING MEASURES INITIATED
[2020-01-09] MEDS ORDERED: ACETAMINOPHEN 325 MG TAB PO ONE ×2 (12:20→12:21)
--- NOTE | 2020-01-09 12:35 | NUR ---
COMFORT WEAN PER MD ORDER, COMPASSIONATE WEANING PERFORMED BY RT. ORDERS OBTAINED. FAMILY AT BEDSIDE. PATIENT PLACED ON COOL MIST MASK. NO DISTRESS NOTED. VS REMAINING STABLE AT THIS TIME.
--- NOTE | 2020-01-09 12:35 | NUR ---
Respiratory note: PT TERMINALLY EXTUBATED WITHOUT INCIDENT AND PLACED ON MED NEB TX DUE. PER MOM WOULD LIKE TO KEEP PT ON TX'S WHILE HERE. PT THEM PLACED ON 50% COOL AEROSOL MASK. HR 117 RR 22 SPO2 96%. WILL CONTINUE TO MONITOR. FAMILY AT BEDSIDE DURING TERMINAL WEAN. WILL CONTINUE TO MONITOR.
[2020-01-09] MEDS: DexMEDEtomidine 400 MCG in D5W 5% 96 ML IV SCH (15:29)
--- NOTE | 2020-01-09 15:30 | NUR ---
D/C Planning Regarding social service consult for hospice evaluation. Spoke to patient mother Monica this morning at 10:30am regarding social service consult for hospice. Per Monica provider spoke to her regarding hospice. Information and choice letter was given to Monica. Per Monica she has been in contact with [facility]. Informed Monica clinical information will be faxed to agency. Monica verbalize understanding d/c plan. Faxed clinical information to [facility]. Per Rylee with [facility] [phone] patient has been accepted and they will see patient upon d/c day. [employer] transportation [phone] has been arranged for 19:00. Bedside nurse was informed.
--- NOTE | 2020-01-09 15:54 | NUR ---
HOSPICE SPOKE WITH ASHANTI FROM [facility]. THIS IS THE COMPANY GOING TO BE USED AT TIME OF DISCHARGE. PT MOTHER AWARE AND HAS SPOKEN WITH NEWS REPORTER. CONTACT INFO: [id number], [place] [address] ~[phone] or
--- NOTE | 2020-01-09 17:44 | NUR ---
CARES/WOUND PARTIAL LINEN CHANGE COMPLETE. BELEM CARE PERFORMED. WOUND PHOTOS TAKEN. MRSA SWAB OBTAINED AND SENT TO LAB.
--- NOTE | 2020-01-09 18:38 | NUR ---
IV D/C RIGHT IJ CENTRAL LINE REMOVED. MANUAL PRESSURE HELD AND DRESSING APPLIED. NO BLEEDING OR HEMATOMA NOTED. MOTHER SIGNED DISCHARGE PAPERWORK.
--- NOTE | 2020-01-09 19:25 | NUR ---
REPORT REPORT GIVEN TO ESTEFANY DUFF, CARE ENDORSED.
--- NOTE | 2020-01-09 19:35 | NUR ---
The transport team is here now, report given on patient condition, mother hea the envelope with all documentation for Hospice care ; patient transferred to the [facility], placed on nonrebreather mask ,appears alert, vs stable.
--- NOTE | 2020-01-09 19:50 | NUR ---
Transport team is now leaving, discharge document signed and dated.
[2020-01-09] MEDS ORDERED: CEFEPIME 2 GM in SODIUM CHL 0.9% 50 ML IV SCH (22:00)
== END 2020-01-09 19:55 | disposition hospice, home (50) | DRG 720 ==
LOC: ER 10:39 → EDBD 10:39 → OVERFLOW 10:40 → CATH ICU 12-31 17:43 → ICU WEST 01-02 12:35
PROVIDERS: ADMIT Internal Medicine; ATTEND Internal Medicine
PROC: 5A1955Z Respiratory Ventilation, Greater than 96 Consecutive Hours (ICD-10-PCS; principal; 2019-12-28)
PROC: 02HV33Z Insertion of Infusion Device into Superior Vena Cava, Percutaneous Approach (ICD-10-PCS; 2019-12-28)
PROC: 0BH17EZ Insertion of Endotracheal Airway into Trachea, Via Natural or Artificial Opening (ICD-10-PCS; 2019-12-28)
DX: A41.9 Sepsis, unspecified organism (principal); J96.01 Acute respiratory failure with hypoxia; R65.21 Severe sepsis with septic shock; N17.0 Acute kidney failure with tubular necrosis; E87.1 Hypo-osmolality and hyponatremia; E87.2 Acidosis; E87.8 Other disorders of electrolyte and fluid balance, not elsewhere classified; G40.909 Epilepsy, unspecified, not intractable, without status epilepticus; N18.4 Chronic kidney disease, stage 4 (severe); N20.0 Calculus of kidney; I31.9 Disease of pericardium, unspecified; R00.1 Bradycardia, unspecified; N26.1 Atrophy of kidney (terminal); E88.09 Other disorders of plasma-protein metabolism, not elsewhere classified; R33.9 Retention of urine, unspecified; N39.0 Urinary tract infection, site not specified; E87.6 Hypokalemia; J96.02 Acute respiratory failure with hypercapnia; Z66 Do not resuscitate; Z51.5 Encounter for palliative care; J98.11 Atelectasis; J15.1 Pneumonia due to Pseudomonas; Z20.828 Contact with and (suspected) exposure to other viral communicable diseases; E87.70 Fluid overload, unspecified; Q04.6 Congenital cerebral cysts; Q04.3 Other reduction deformities of brain; Z83.3 Family history of diabetes mellitus; Z82.49 Family history of ischemic heart disease and other diseases of the circulatory system; Z79.899 Other long term (current) drug therapy; G80.9 Cerebral palsy, unspecified; J15.0 Pneumonia due to Klebsiella pneumoniae; J90 Pleural effusion, not elsewhere classified
CPT/HCPCS: 36415; 36600; 70450; 71045; 74018; 76604; 76775; 80048; 80053; 80076; 81001; 82550; 82570; 82728; 82805; 82962; 83036; 83605; 83615; 83735; 83880; 84100; 84132; 84156; 84300; 84439; 84443; 84481; 84484; 85007; 85025; 85027; 85379; 85610; 85652; 85730; 86141; 87040; 87070; 87077; 87081; 87086; 87088; 87186; 87205; 87804; 87880; 93005; 93306; 94002; 94003; 94640; 95819; 99291; C9113; G0378; J0330; J1956; J2185; J2250; J2543; J3480; J3490; J7060